=== PATIENT | female | born 1995 | race Caucasian/White ===

== ENCOUNTER 2023-12-09 07:23 | Inpatient (IN) ==
--- OUTSIDE RECORDS SUMMARY | 2023-12-09 07:30 | External Medical Summary | Summary of Care ---
Author Name Unknown Organization [facility] Address [address] [facility] [address] [place] [address] Phone [phone] Care Team Providers Care Natural Resources Specialist Name Role Phone Efra Simmons PA-C Primary Care Provi yasmeen Reason for Visit * Reason Onset Date Comments Advice 12/06/2023 Encounter Details Date Type Department Care Team (Late st Contact Info) Description 12/06/2023 Telephone Gynecology/Obstetrics [facility] [address] [place] [address] Mik Voss MD [address] [place] [address] Advice Allergies Active Allergy Reactions Criticality Noted Date Comments Amoxicillin 01/02/2023 Hives , swollen throat Cefprozil 01/02/2023 hives documented as of this encounter (statuses as of 12/06/2023) Medications Medication Sig Dispensed Refills Start Date End Date Status 27-0.8 MG Oral Tablet Take 1 Tablet by mouth daily at noon. 0 Active Aspirin 81 MG Oral Tablet Delayed ReleaseIndications:H istory of pre-eclampsia in prior , currently Take 1 Tablet by mouth in the morning. 100 Tablet 3 05/24/2023 Active B-6 50 MG Oral Tablet Take 0.5 Tablets by mouth. 0 Active Docusate Sodium 100 MG Oral Capsule (Colace) Take 1 Capsule by mouth in the morning and 1 Capsule before bedtime. 60 Capsule 5 10/04/2023 Active Ondansetron HCl 8 MG Oral TabletIndications:Na usea and vomiting during Take 1 Tablet by mouth every 8 hours as needed for Nausea. 40 Tablet 1 11/15/2023 Active Promethazine HCl 25 MG Oral Tablet (Phenergan)Indicatio ns:Nausea and vomiting during Take 1 Tablet by mouth every 6 hours as needed for Nausea. 30 Tablet 1 11/15/2023 Active documented as of this encounter (statuses as of 12/06/2023) Active Problems Problem Noted Date Diagnosed Date History of pre-eclampsia in prior , currently 05/03/2023 Overview: Plan to start ASA at 12 weeks. Baseline labs at [facility]. Obesity 05/03/2023 PCOS (polycystic ovarian syndrome) 05/03/2023 Normal 05/03/2023 Obesity in , antepartum 05/03/2023 Overview: Class 1, early GTT wnl LGSIL on Pap smear of cervix 12/22/2022 Estimated Date of Delivery Comme nts Yes 12/11/2023 Based on last me nstrual period of 03/06/2023 documented as of this encounter (statuses as of 12/06/2023) Immunizations Name Administration Dates Next Due TDAP (age 10 and older)(Boostrix) 09/17/2023 documented as of this encounter Social History Tobacco Use Types Packs/Day Years Used Date Smoking Tobacco: Never Smokeless Tobacco: Never Alcohol Use Standard Drinks/Week Comments Not Currently 0 (1 standard drink = 0.6 oz pur e alcohol) PHQ-2 Answer Date Recorded PHQ Adult Total Score 0 10/04/2023 Hunger Vital Sign Answer Date Recorded Within the past 12 months, y ou worried that your food would run out before you got the money to buy more. Never true 04/08/20 23 Within the past 12 months, t he food you bought just didn't last and you didn't have money to get more. Never true 04/08/2023 [place] Depression Scale Answer Date Recorded [place] Depression Scale Total 1 11/01/2023 The thought of harming myself has occurred to me . Never 11/01/2023 Estimated Date of Delivery Comme nts Yes 12/11/2023 Based on last me nstrual period of 03/06/2023 Sex and Gender Information Value Date Recorded Sex Assigned at Female 01/02/2023 3:12 PM EDT Gender Identity Female 01/02/2023 3:12 PM EDT Sexual Orientation Straight 01/02/2023 3: 12 PM EDT Job Start Date Occupation Industry Not on file Not on file Not on file documented as of this encounter Miscellaneous Notes * Telephone Encounter - Edmundo Fontanez OSA - 12/06/2023 9:33 AM EDT Pt is calling back in regards to her induction for Saturday. She is requesting a membrane sweep possibly for today to try to go into labor sooner. I let pt know the 24-48 hour callback time. * Telephone Encounter - Ama Corcoran LPN - 12/06/2023 9:19 AM EDT Pt notified. Agreeable to Saturday and [facility] * Telephone Encounter - Olga Han LPN - 12/06/2023 9:03 AM EDT Adriana lópez [facility] called about patients induction. She was scheduled as the 4th case today and they have no open beds. Her induction is being moved to 12/08. She will not be a 4th case Saturday so should not get bumped. Per Dr Lambert, we are to apologize to the patient as this is her second time being bumped and offer to call [facility] for a sooner induction. documented in this encounter Plan of Treatment Upcoming Encounters Date Type Department Care Team (Late st Contact Info) Description 12/06/2023 1:45 PM EDT [facility] [address] [place] [address] Jenny Mosher CRNP [address] [place] [address] 12/09/2023 8:45 AM EDT Office [facility] [address] [place] [address] Cristina Loyd, DNP, CNM [address] [place] [address] Health Maintenance Due Date Last Done Comments Hepatitis B (1 of 3 - 19+ 3-dose series) 02/06/2015 COVID-19 Vaccine (1 - 2022-2 4 season) 2023 Influenza Vaccine (FLU shot) (#1) 2023 Depression Screening 10/04/2024 10/04/2023 Pap Smear 01/02/2026 01/02/2023 DTaP,Tdap,and Td Vaccines (3 - Td or Tdap) 09/17/2033 09/17/2023, 09/22/2019 MENINGOCOCCAL (MENACTRA/MENVEO) Aged Out 10/14/2007 No longer eligible b ased on patient's age to complete this topic GARDASIL-HPV IMMUNIZATION SERIES Completed 06/16/2008, 12/23/2007, 10/14/2007 Pneumococcal Vaccine: Pediatrics (0 to 5 Years) and At-Risk Patients (6 to 64 Years) Aged Out No longer eligible b ased on patient's age to complete this topic documented as of this encounter Medical Devices Not on filedocumented as of this encounter Care Teams Natural Resources Specialist Relationship Specialty Start Date End Date Efra Simmons PA-C [address] [facility] [address] PCP - General Physician Supervisor Concrete Block [employer] 04/04/23 documented as of this encounter
--- OUTSIDE RECORDS SUMMARY | 2023-12-09 07:30 | External Medical Summary | Summary of Care ---
Author Name Unknown Organization [facility] Address [address] [facility] [place] [address] Phone [phone] Care Team Providers Care Apparel Merchandiser Name Role Phone Efra Simmons PA-C Primary Care Provi yasmeen Encounter Details Date Type Department Care Team (Late st Contact Info) Description 12/06/2023 Telephone Gynecology/Obstetrics, [address] [place] [phone] Tiffany Price CRNP [address] [place] [address] Allergies Active Allergy Reactions Criticality Noted Date [...] money to get more. Never true 04/08/2023 [place] Depression Scale Answer Date Recorded [place] Depression Scale Total 1 11/01/2023 The thought [...] encounter Miscellaneous Notes * Telephone Encounter - Elena Pino LPN - 12/06/2023 9:37 AM EDT Pt calling in stating she was to be induced today but it was cancelled and she was told to not cometo her scheduled appointment this morning as she was to be induced. Since this was cancelled she was asking to come in for her original appointment and would like he membranes swept if possible. Pt scheduled in open spot and advised that the provider would be the one to decide if she is able to have he membranes swept. Elena Pino LPN documented in this encounter Plan of Treatment Upcoming Encounters Date Type Department Care Team (Late st Contact Info) Description 12/06/2023 1:45 PM EDT Office Visit Gynecology/Obstetrics [facility] [address] [place] [address] BackerJenny CRNP [address] [place] [address] 12/09/2023 8:45 AM EDT Office Visit Gynecology/Obstetrics [facility] [address] [place] [address] Cristina Loyd, DNP, CNM [address] [facility] [place] [phone] Health Maintenance Due Date Last Done Comments Hepatitis B (1 of 3 - 19+ 3-dose series) 02/06/2015 COVID-19 Vaccine ( - 2022-2 4 season) 2023 Influenza Vaccine [...] filedocumented as of this encounter Care Teams Apparel Merchandiser Relationship Specialty Start Date End Date Efra Simmons PA-C [address] [facility] [address] PCP - General Physician Hedge Fund Principal 04/04/23 documented as of this encounter
--- OUTSIDE RECORDS SUMMARY | 2023-12-09 07:30 | External Medical Summary | Summary of Care ---
Author Name Unknown Organization [facility] Address [address] [facility] [place] [address] Phone [phone] Care Team Providers Care Linen Attendant Name Role Phone Efra Simmons PA-C Primary Care Provi yasmeen Reason for Visit * Reason Comments Return Visit Encounter Details Date Type Department Care Team (Late st Contact Info) Description 12/06/2023 1:45 PM EDT Office Visit Gynecology/Obstetric s [facility] Bedoya [address] [place] [address] BackerJenny CRNP [address] [place] [address] Normal in third trimester*; History of pre-eclampsia in prior , currently ; Obesity in , antepartum Allergies Active Allergy Reactions Criticality Noted Date [...] money to get more. Never true 04/08/2023 [place] Depression Scale Answer Date Recorded [place] Depression Scale Total 1 11/01/2023 The thought of harming myself has occurred to me . Never 11/01/2023 Estimated Date of Delivery Comme nts Yes 12/11/2023 Based on last me nstrual period of 03/06/2023 Sex and Gender Information Value Date Recorded Sex Assigned at Female 01/02/2023 3:12 PM EDT Gender Identity Female 01/02/2023 3:12 PM EDT Sexual Orientation Straight 01/02/2023 3 :12 PM EDT Job Start Date Occupation Industry Not on file Not on file Not on file documented as of this encounter Last Filed Vital Signs Vital Sign Reading Time Taken Comments Blood Pressure 114/70 12/06/2023 1:41 PM EDT Pulse - - Temperature - - Respiratory Rate - - Oxygen Saturation - - Inhaled Oxygen Concentration - - Weight 114.3 kg (252 lb) 12/06/2023 1:41 PM EDT Height - - Body Mass Index 38.32 11/22/2023 8:44 AM EST documented in this encounter Progress Notes * Kirti Castaneda LPN - 12/06/2023 1:41 PM EDT 39w2d Denies vaginal bleeding/rom + movement IOL moved to 12/08 Noticing back pain and pressure * Jenny Mosher CRNP - 12/06/2023 1:39 PM EDT 39w2d Overall ok, just feeling "miserable". No leaking, bleeding, or regular ctx. +back pain. Good movement. Cervix long, fingertip - unable to sweep membranes. Scheduled for induction on Saturday. Call sooner if needed. Ambulance Driver Paramedic Documentation Provider requested induction coordination engineer. Name of induction coordination engineer: JEVON Perez LPN documented in this encounter Plan of Treatment Upcoming Encounters Date Type Department Care Team (Late st Contact Info) Description 12/09/2023 8:45 AM EDT Office Visit Gynecology/Obstetrics [address] [place] [address] Cristina Loyd, BERENICE, CNM [address] [place] [address] [place] [address] Health Maintenance Due Date Last Done Comments [...] Not on filedocumented as of this encounter Visit Diagnoses Diagnosis Normal in third trimester- Primary History of pre-eclampsia in prior , currently with other poor obstetric history Obesity in , antepartum Obesity complicating , childbirth, or the puerperium, antepartum condition or complication documented in this encounter Care Teams Linen Attendant Relationship Specialty Start Date End Date Efra Smimons PA-C [address] [place] [address] PCP - General Physician Trombone Slide Assembler 04/04/23 documented as of this encounter
--- OUTSIDE RECORDS SUMMARY | 2023-12-09 07:31 | External Medical Summary | Summary of Care ---
Author Name Unknown Organization [facility] Address [address] [facility] [place] [address] Phone [phone] Care Team Providers Care Ham Pumper Name Role Phone Efra Simmons PA-C Primary Care Provi yasmeen Reason for Visit * Reason Comments Return Visit Encounter Details Date Type Department Care Team (Late st Contact Info) Description 11/22/2023 8:45 AM EST Office Visit Gynecology/Obstetric s [facility] [address] [place] [address] Tiffany Price CRNP [address] [place] [address] Normal in third trimester*; History of pre-eclampsia in prior , currently ; Obesity in , antepartum; Antepartum tachycardia affecting care of mother; Excessive growth affecting management of , antepartum, single or unspecified fetus Allergies Active Allergy Reactions Criticality Noted Date Comments Amoxicillin 01/02/2023 Hives , swollen throat Cefprozil 01/02/2023 hives documented as of this encounter (statuses as of 11/22/2023) Medications Medication Sig Dispensed Refills Start Date [...] as of this encounter (statuses as of 11/22/2023) Active Problems Problem Noted Date Diagnosed Date [...] as of this encounter (statuses as of 11/22/2023) Immunizations Name Administration Dates Next Due TDAP [...] money to buy more. Never true 04/08/20 Within the past 12 months, t he food you bought just didn't last and you didn't have money to get more. Never true 04/08/2023 [place] Depression Scale Answer Date Recorded [place] Depression Scale Total 1 11/01/2023 The thought [...] Sign Reading Time Taken Comments Blood Pressure 116/68 11/22/2023 8:44 AM EST Pulse - - Temperature - - Respiratory Rate - - Oxygen Saturation - - Inhaled Oxygen Concentration - - Weight 112 kg (247 lb) 11/22/2023 8:44 AM EST Height 172.7 cm (5' 8") 11/22/2023 8:44 AM EST Body Mass Index 37.56 11/22/2023 8:44 AM EST documented in this encounter Progress Notes * Tiffany Price CRNP - 11/22/2023 9:06 AM EST 37w2d Feeling very uncomfortable, baby is LGA. Has IOL scheduled. Good FM. No regular contractions, no bleeding or LOF. tachycardia noted with doppler. NST today. ASSESSMENT assessment with Non-stress Test completed on 11/22/2023 at 37.2weeks gestation for indication of tachycardia heart baseline: 140 bpm Variability: Moderate Decelerations: absent Accelerations: present Contractions: None NST start time: 1000 NST stop time: 1025 NST strip reviewed, interpreted, and approved by OB providerTiffany CRNP . NST strip stored in clinic storage file * Marychuy Bethea LPN - 11/22/2023 8:44 AM EST 37w2d Left sided pain documented in this encounter Plan of Treatment Upcoming Encounters Date Type Department Care Team (Late st Contact Info) Description 11/29/2023 8:45 AM EST Office Visit Gynecology/Obstetrics [facility] Bed[facility] [address] [place] [address] Tiffany Price CRNP [address] [place], [place] [address] 12/06/2023 8:45 AM EDT Office Visit Gynecology/Obstetrics Yan[facility] Maries [address] [place], [place] [address] Tiffany Price CRNP [address] [place] [address] 12/09/2023 8:45 AM EDT Office Visit Gynecology/Obstetrics Yan[facility] Bedoya [address] [place] [address] Cristina Loyd, BERENICE, CN [address] [facility] [address] Health Maintenance Due Date Last Done Comments Hepatitis B (1 of 3 - 19+ 3-dose series) 02/06/2015 COVID-19 Vaccine (2022-2 4 season) 2023 Influenza Vaccine (FLU shot) [...] or the puerperium, antepartum condition or complication Antepartum tachycardia affecting care of mother Abnormality in heart rate/rhythm, antepartum condition or complication Excessive growth affecting management of , antepartum, single or unspecified fetus documented in this encounter Care Teams Ham Pumper Relationship Specialty Start Date End Date Efra Simmons PA-C [address] [facility] [address] PCP - General Physician Plastics Engineering Teacher 04/04/23 documented as of this encounter
--- OUTSIDE RECORDS SUMMARY | 2023-12-09 07:31 | External Medical Summary | Summary of Care ---
Author Name Unknown Organization [facility] Address [address] [facility] [place] [address] Phone [phone] Care Team Providers Care Break Out Worker Name Role Phone Efra Simmons PA-C Primary Care Provi yasmeen Encounter Details Date Type Department Care Team (Late st Contact Info) Description 11/28/2023 Telephone [facility] [address] [place] [address] Tiffany Price CRNP [address] [place] [address] Allergies Active Allergy Reactions Criticality Noted Date Comments Amoxicillin 01/02/2023 Hives , swollen throat Cefprozil 01/02/2023 hives documented as of this encounter (statuses as of 11/29/2023) Medications Medication Sig Dispensed Refills Start Date [...] as of this encounter (statuses as of 11/29/2023) Active Problems Problem Noted Date Diagnosed Date [...] as of this encounter (statuses as of 11/29/2023) Immunizations Name Administration Dates Next Due TDAP [...] money to get more. Never true 04/08/2023 [place] Depression Scale Answer Date Recorded [place] Depression Scale Total 1 11/01/2023 The thought [...] encounter Miscellaneous Notes * Telephone Encounter - Marychuy Bethea LPN - 11/28/2023 3:44 PM EST Pt called in confused to when her Iol was moved. I reached out to [facility] and she said 12/05 IOL is move to. Pt also gave me an updated phone number of [phone]. spoke with pt she verbalized understanding * Telephone Encounter - Eleanor Howard RN - 11/28/2023 3:32 PM EST Reviewed pt's induction with Tiffany for LGA. Hospital is unable to do this now on Saturday due to priority pt. Pt's induction, is being moved to Saturday. Pt will need to call at 1100 am that day to ensure her bed is ready. I attempted to call pt but her number is not accepting called at this time. MyG sent to pt. documented in this encounter Plan of Treatment Upcoming Encounters Date Type Department Care Team (Late st Contact Info) Description 12/06/2023 8:45 AM EDT [facility] [address] [place] [address] Tiffany Price CRNP [address] [place] [address] 12/09/2023 8:45 AM EDT [facility] [address] [place] [address] Cristina Loyd, BERENICE, CNM [address] [place] [address] Health Maintenance Due Date Last Done Comments [...] filedocumented as of this encounter Care Teams Break Out Worker Relationship Specialty Start Date End Date Efra Simmons PA-C [address] [facility] [address] PCP - General Physician Electrical Continuity Inspector 04/04/23 documented as of this encounter
--- OUTSIDE RECORDS SUMMARY | 2023-12-09 07:31 | External Medical Summary | Summary of Care ---
Author Name Unknown Organization [facility] Address [address] [facility] [place] [address] Phone [phone] Care Team Providers Care Digital Experience Manager Name Role Phone Efra Simmons PA-C Primary Care Provi yasmeen Reason for Referral * Evaluate & Treat - Unlimited Visits (Within 10 days (routine)) - Pending Review Specialty Diagnoses / Procedures Referred By Mara salvador Referred To Contact Physical Therapy / Physical Medicine And Rehab Diagnoses Pelvic pain affecting in third trimester, antepartum Jenny Mosher CRNP [address] [employer] [place] [address] Referral ID Status Reason Start Date Expiration Date Visits Requested Visits Authorized [id number] Pending Review Specialty Services Required 11/15/[phone] Question Answer Referral Priority Within 10 days (routine) Where should this appointment be scheduled? [facility] Reason for Visit * Reason Comments Return Visit Encounter Details Date Type Department Care Team ([facility] st Contact Info) Description 11/15/2023 8:45 AM EST Office Visit Gynecology/Obstetric s [facility] [address] [place] [address] Jenny Mosher CRNP [address] [employer] [place] [address] Normal in third trimester*; History of pre-eclampsia in prior , currently ; Obesity in , antepartum; Nausea and vomiting during ; Pelvic pain affecting in third trimester, antepartum Allergies Active Allergy Reactions Criticality Noted Date Comments Amoxicillin 01/02/2023 Hives , swollen throat Cefprozil 01/02/2023 hives documented as of this encounter (statuses as of 11/15/2023) Medications Medication Sig Dispensed Refills Start Date End Date Status 27-0.8 MG Oral Tablet Take 1 Tablet by mouth daily at noon. 0 Active Aspirin 81 MG Oral Tablet Delayed ReleaseIndication s:History of pre-eclampsia in prior , currently Take 1 Tablet by mouth in the morning. 100 Tablet 3 05/24/2023 Active B-6 50 MG Oral Tablet Take 0.5 Tablets by mouth. 0 Active Docusate Sodium 100 MG Oral Capsule (Colace) Take 1 Capsule by mouth in the morning and 1 Capsule before bedtime. 60 Capsule 5 10/04/2023 Active Ondansetron HCl 8 MG Oral TabletIndications :Nausea and vomiting during Take 1 Tablet by mouth every 8 hours as needed for Nausea. 40 Tablet 1 11/15/2023 Active Promethazine HCl 25 MG Oral Tablet (Phenergan)Indica tions:Nausea and vomiting during Take 1 Tablet by mouth every 6 hours as needed for Nausea. 30 Tablet 1 11/15/2023 Active Ondansetron HCl 8 MG Oral Tablet Take 1 Tablet by mouth every 8 hours as needed for Nausea. 40 Tablet 1 09/17/2023 11/15/2023 Discontinued (Refill) documented as of this encounter (statuses as of 11/15/2023) Active Problems Problem Noted Date Diagnosed Date [...] as of this encounter (statuses as of 11/15/2023) Immunizations Name Administration Dates Next Due TDAP [...] money to get more. Never true 04/08/2023 [place] Depression Scale Answer Date Recorded [place] Depression Scale Total 1 11/01/2023 The thought [...] Sign Reading Time Taken Comments Blood Pressure 110/68 11/15/2023 8:32 AM EST Pulse - - Temperature - - Respiratory Rate - - Oxygen Saturation - - Inhaled Oxygen Concentration - - Weight 113.4 kg (250 lb) 11/15/2023 8:32 AM EST Height - - Body Mass Index 38.01 10/18/2023 8:41 AM EST documented in this encounter Patient Instructions * Patient Instructions* Jenny Mosher CRNP - 11/15/2023 8:50 AM EST Local pelvic floor physical therapists - Jakob Cameron: , . Website [email or web address] - [place] [facility]: [email or web address]. [phone] - Energy: [phone] - Christy: [email or web address]. documented in this encounter Progress Notes * Jenny Mosher CRNP - 11/15/2023 8:41 AM EST 36w2d Growth scan today: 3411gm (95%); AC 99th %ile 23.1 CM FRANSICO, vertex GBS today. Discussed 39 wk induction due to LGA (though not a medical indication); she is agreeable. Baby is moving well. No ctx but having lower pelvic pain with walking - tried exercise ball, stretching, Tylenol, fluids, belly band. Will send referral for PT, given list of local providers. Return in 1 week. Fastener Sewing Machine Operator Documentation Provider requested senior project architect. Name of senior project architect: JEVON Londono LPN documented in this encounter Nursing Notes * Ama Corcoran LPN - 11/15/2023 8:29 AM EST Pt is currently 36w2d with an Estimated Date of Delivery: 12/11/23 - Growth today. 37w4d 3411gm 132 FHT 23.1 CM FRANSICO documented in this encounter Plan of Treatment Upcoming Encounters Date Type Department Care Team (Late st Contact Info) Description 11/22/2023 8:45 AM EST Office Visit Gynecology/Obstetrics [facility] [address] [place] [address] Tiffany Price CRNP 132 [place] [address] 11/29/2023 8:45 AM EST Office Visit Gynecology/Obstetrics [facility] [address] [place] [address] Tiffany Price CRNP [address] [place] [address] 12/06/2023 8:45 AM EDT Office Visit Gynecology/Obstetrics [facility] [address] [facility] [place] [address] Tiffany Price CRNP 132 [facility] [place] [address] 12/09/2023 8:45 AM EDT Office Visit Gynecology/Obstetrics [facility] 132 [facility] [place] [address] Cristina Loyd, DNP, CNM [address] [facility] [place] [address] Pending Results Name Type Priority Associated Diagnoses Date /Time GROUP B STREP CULTURE/PCR Lab Routine Normal in third trimester 11/15/2023 8:59 AM EST Scheduled Orders Name Type Priority Associated Diagnoses Orde r Schedule GROUP B STREP CULTURE/PCR Lab Routine Normal in third trimester Expected: 11/15/2023, Expires: 11/15/2024 Scheduled Referrals Name Type Priority Associated Diagnoses Orde r Schedule PHYSICAL THERAPY REFERRAL OP Referral Within 10 days (routine) Pelvic pain affecting in third trimester, antepartum Ordered: 11/15/2023 Health Maintenance Due Date Last Done Comments [...] or the puerperium, antepartum condition or complication Nausea and vomiting during Pelvic pain affecting in third trimester, antepartum documented in this encounter Care Teams Digital Experience Manager Relationship Specialty Start Date End Date E[facility]-C [facility] [facility] [address] PCP - General Physician Manager Banking 04/04/23 documented as of this encounter
--- OUTSIDE RECORDS SUMMARY | 2023-12-09 07:31 | External Medical Summary | Summary of Care ---
Author Name Unknown Organization [facility] Address [address] [facility] [place] [address] Phone [phone] Care Team Providers Care Able Seaman Name Role Phone Efra Simmons PA-C Primary Care Provi yasmeen Encounter Details Date Type Department Care Team (Late st Contact Info) Description 11/28/2023 Telephone [facility] [address] [place] [address] Diane Chavez PA-C [address] [place] [address] Allergies Active Allergy Reactions Criticality Noted Date Comments Amoxicillin 01/02/2023 Hives , swollen throat Cefprozil 01/02/2023 hives documented as of this encounter (statuses as of 11/28/2023) Medications Medication Sig Dispensed Refills Start Date [...] as of this encounter (statuses as of 11/28/2023) Active Problems Problem Noted Date Diagnosed Date [...] as of this encounter (statuses as of 11/28/2023) Immunizations Name Administration Dates Next Due TDAP [...] money to get more. Never true 04/08/2023 [place] Depression Scale Answer Date Recorded [place] Depression Scale Total 1 11/01/2023 The thought [...] encounter Miscellaneous Notes * Telephone Encounter - Diane Chavez PA-C - 11/28/2023 1:53 PM EST [facility]'s patient. Vaginosis + for yeast. OTC monistat is safest treatment in . Recommend for treatment if she has not tried at thistime. Diane Chavez PA-C documented in this encounter Plan of Treatment Upcoming Encounters Date Type Department Care Team (Late st Contact Info) Description 12/06/2023 8:45 AM EDT Office Visit Gynecology/Obstetrics [facility] [address] [place] [address] Tiffany Price CRNP [address] [place] [address] 12/09/2023 8:45 AM EDT Office Visit Gynecology/Obstetrics [facility] [address] [place] [address] Cristina Loyd, DNP, CNM [address] [facility] [place] [address] Health Maintenance Due Date Last Done Comments [...] filedocumented as of this encounter Care Teams Able Seaman Relationship Specialty Start Date End Date Efra Simmons PA-C [address] [facility] [address] PCP - General Physician Infusion Pharmacist 04/04/23 documented as of this encounter
--- OUTSIDE RECORDS SUMMARY | 2023-12-09 07:31 | External Medical Summary | Summary of Care ---
Author Name Unknown Organization [facility] Address [address] [facility] [place] [address] Phone [phone] Care Team Providers Care Rn Vascular Name Role Phone Efra Simmons PA-C Primary Care Provi yasmeen Encounter Details Date Type Department Care Team (Late st Contact Info) Description 12/06/2023 Telephone Gynecology/Obstetrics [facility] [address] [place] [address] Mik Voss MD [address] [place] [address] Allergies Active Allergy Reactions Criticality Noted Date [...] money to get more. Never true 04/08/2023 [place] Depression Scale Answer Date Recorded [place] Depression Scale Total 1 11/01/2023 The thought [...] encounter Miscellaneous Notes * Telephone Encounter - Ama Corcoran LPN - 12/06/2023 9:19 AM EDT Pt notified. Agreeable to [facility] and [facility] * Telephone Encounter - Olga Han LPN - 12/06/2023 9:03 AM EDT Adriana as L+D called about patients induction. She was scheduled as the 4th case today and they have no open beds. Her induction is being moved to 12/08. She will not be a 4th case Saturday so should not get bumped. Per Dr Lambert, we are to apologize to the patient as this is her second time being bumped and offer to call [facility] for a sooner induction. documented in this encounter Plan of Treatment Upcoming Encounters Date Type Department Care Team (Late st Contact Info) Description 12/09/2023 8:45 AM EDT Office Visit Gynecology/Obstetrics [facility] [address] [facility] [place] [address] Cristina Loyd, DNP, CNM [address] [place] [address] [place] [address] Health Maintenance Due Date [...] filedocumented as of this encounter Care Teams Rn Vascular Relationship Specialty Start Date End Date Efra Simmons PA-C [address] [facility] [address] PCP - General Physician White Shoe Examiner 04/04/23 documented as of this encounter
--- OUTSIDE RECORDS SUMMARY | 2023-12-09 07:31 | External Medical Summary | Summary of Care ---
Author Name Unknown Organization [facility] Address [address] [facility] [place] [address] Phone [phone] Care Team Providers Care Wall Crane Operator Name Role Phone Efra Simmons PA-C Primary Care Provi yasmeen Encounter Details Date Type Department Care Team (Late st Contact Info) Description 11/28/2023 Telephone [facility] [address] [place] [address] Tiffany Price CRNP [address] [place] [address] Allergies Active Allergy Reactions Criticality Noted Date [...] money to get more. Never true 04/08/2023 [place] Depression Scale Answer Date Recorded [place] Depression Scale Total 1 11/01/2023 The thought [...] Iol was moved. I reached out to [facility] and she said 12/05 IOL is move to. Pt also gave me an updated phone number of [phone]. spoke with pt she verbalized understanding * [...] 12/06/2023 8:45 AM EDT [facility] [address] [place] [address] Tiffany Price CRNP [address] [place] [address] 12/09/2023 8:45 AM EDT Office [facility] [address] [place] [address] Cristina Loyd, BERENICE, CNM [address] [place] [address] Health Maintenance Due Date Last Done Comments [...] filedocumented as of this encounter Care Teams Wall Crane Operator Relationship Specialty Start Date End Date Efra Simmons PA-C [address] [facility] [address] PCP - General Physician Dry Goods Inspector 04/04/23 documented as of this encounter
--- OUTSIDE RECORDS SUMMARY | 2023-12-09 07:31 | External Medical Summary ---
Author Name Unknown Address Unknown Organization [facility] [place] [address] Laboratory Report Ordering Provider Test Date Status PRICILA DRISCOLL 11/27/2023 13:48:00 Final Observation Date Value Abnormality Reference (Units ) Status Albumin 11/27/2023 13:48:00 3.5 Below low normal 3.8-5.0 (g/dL) Final AST (Aspartate aminotransferase) 11/27/2023 13:48:00 14 10-35 (U/L) Final Alk Phos 11/27/2023 13:48:00 220 Above high normal 35-130 (U/L) Final ALT (Alanine aminotransferase) 11/27/2023 13:48:00 9 Below low normal 10-35 (U/L) Final Bilirubin, Total 11/27/2023 13:48:00 0.4 <=1.2 (mg/dL) Final Bilirubin, Direct 11/27/2023 13:48:00 <0.2 0.0-0.3 (mg/dL) Final Protein 11/27/2023 13:48:00 6.0 6.0-8.3 (g/dL) Final Performing Location [facility] [place] [address]
--- OUTSIDE RECORDS SUMMARY | 2023-12-09 07:31 | External Medical Summary ---
Author Name Unknown Address Unknown Organization K[facility] [address] [facility] [address] Laboratory Report Ordering Provider Test Date Status PRICILA DRISCOLL 11/27/2023 13:37:05 Final Observation Date Value Abnormality Reference (Units ) Status Alta glabrata DNA [Presence] in Vaginal fluid by JENNIFER with probe detection 11/27/2023 13:37:05 Negative Negative Final Alta glabrata not detecte d by PCR. Alta albicans DNA [Presen ce] in Vaginal fluid by JENNIFER with probe detection 11/27/2023 13:37:05 Positive Abnormal Negative Final Alta albicans detected by PCR.

Organism may be associated with colonization. Clinical correlation needed. Trichomonas vaginalis DNA [P resence] in Vaginal fluid by JENNIFER with probe detection 11/27/2023 13:37:05 Negative Negative Final Trichomonas vaginalis not de tected by PCR. Gardnerella vaginalis DNA [P resence] in Vaginal fluid by Probe with signal amplification 11/27/2023 13:37:05 Negative Negative Final Gardnerella vaginalis not de tected by PCR.

This test was developed and its performance characteristics determined by [facility]. It has not been cleared or approved by the U.S. Food and Drug Administration (FDA). FDA does not require this test to go through premarket FDA review. This test is used for clinical purposes. It should not be regarded as investigational or for research. This laboratory is certified under the Clinical Laboratory Improvement Amendments (CLIA) as qualified to perform high complexity clinical laboratory testing.

The validation of self-collected vaginal swabs for this assay was developed and performance characteristics determined by [facility]. The validation of alternate specimen types has not been cleared or approved by the U.S. Food and Drug Administration (FDA). It has been determined that such clearance or approval is not necessary.

null Performing Location [facility] [address] [facility] [address] [address]
--- OUTSIDE RECORDS SUMMARY | 2023-12-09 07:31 | External Medical Summary | Summary of Care ---
Author Name Unknown Organization [facility] Address [address] [facility] [place] [address] Phone [phone] Care Team Providers Care Car Knocker Name Role Phone Efra Simmons PA-C Primary Care Provi yasmeen Reason for Visit * Reason Onset Date Comments Encounter Created in Error 11/15/2023 Encounter Details Date Type Department Care Team (Late st Contact Info) Description 11/15/2023 Telephone Gynecology/Obstetrics [facility] [address] [place] [address] Jenny Mosher CRNP [address] [place] [address] Encounter Created in Error Allergies Active Allergy Reactions Criticality Noted Date [...] money to get more. Never true 04/08/20[address] [place] Depression Scale Answer Date Recorded [place] Depression Scale Total 1 11/01/2023 The thought [...] on file documented as of this encounter Plan of Treatment Upcoming Encounters Date Type Department Care Team (Late st Contact Info) Description 11/22/2023 8:45 AM EST Office Visit Gynecology/Obstetrics [facility] [address] [place] [address] Tiffany Price CRNP [address] [place] [address] 11/29/2023 8:45 AM EST Office Visit Gynecology/Obstetrics [facility] [address] [place] [address] Tiffany Price CRNP [address] [place] [address] 12/06/2023 8:45 AM EDT Office Visit Gynecology/Obstetrics [facility] [address] [place] [address] Tfifany Price CRNP [address] [place] [address] 12/09/2023 8:45 AM EDT Office [facility] [address] [place] [address] Cristina Loyd, DNP, CNM [address] [place] [address] Health Maintenance Due Date Last Done Comments [...] filedocumented as of this encounter Care Teams Car Knocker Relationship Specialty Start Date End Date Efra Simmons PA-C [address] [facility] [address] PCP - General Physician Head Waitress 04/04/23 documented as of this encounter
--- OUTSIDE RECORDS SUMMARY | 2023-12-09 07:31 | External Medical Summary | Summary of Care ---
Author Name Unknown Organization [facility] Address [address] [facility] [place] [address] Phone [phone] Care Team Providers Care Manager Market Development Name Role Phone Efra Simmons PA-C Primary Care Provi yasmeen Reason for Visit * Reason Onset Date Comments Advice 12/06/2023 Encounter Details Date Type Department Care Team (Late st Contact Info) Description 12/06/2023 Telephone Gynecology/Obstetrics [facility] [address] [place] [address] Mik Voss MD [address] [place] [address] Advice Allergies Active Allergy Reactions Criticality Noted [...] money to get more. Never true 04/08/2023 [place] Depression Scale Answer Date Recorded [place] Depression Scale Total 1 11/01/2023 The thought [...] EDT Pt notified. Agreeable to Saturday and [facility] * Telephone Encounter - Olga Han LPN - 12/06/2023 9:03 AM EDT Adriana lópez L+D called about patients induction. She was scheduled as the 4th case today and they have no open beds. Her induction is being moved to 12/08. She will not be a 4th case Saturday so should not get bumped. Per Dr Lambert, we are to apologize to the patient as this is her second time being bumped and [facility] a sooner [facility]. documented in this encounter Plan of Treatment Upcoming Encounters Date Type Department Care Team (Late st Contact Info) Description 12/09/2023 8:45 AM EDT Office Visit Gynecology/Obstetrics [facility] [address] [facility] [place] [address] Cristina Loyd, DNP, CNM [address] [place] [address] Health Maintenance Due Date Last Done [...] filedocumented as of this encounter Care Teams Manager Market Development Relationship Specialty Start Date End Date Efra Simmons PA-C [address] [facility] [address] PCP - General Physician Director Data Management 04/04/23 documented as of this encounter
--- OUTSIDE RECORDS SUMMARY | 2023-12-09 07:31 | External Medical Summary | Summary of Care ---
Author Name Unknown Organization [facility] Address [address] [facility] [place] [address] Phone [phone] Care Team Providers Care Assistant Project Engineer Name Role Phone Efra Simmons PA-C Primary Care Provi yasmeen Reason for Visit * Reason Onset Date Comments Advice 12/06/2023 Encounter Details Date Type Department Care Team (Late st Contact Info) Description 12/06/2023 Telephone Gynecology/Obstetrics [facility] [address] [place] [address] Mik Voss MD [address] [place] [address] Advice Allergies Active Allergy Reactions Criticality Noted [...] money to get more. Never true 04/08/2023 [place] Depression Scale Answer Date Recorded [place] Depression Scale Total 1 11/01/2023 The thought [...] 9:19 AM EDT Pt notified. Agreeable to [facility] and [facility] * Telephone Encounter - Olga Han LPN [...] time being bumped and offer to call [facility] for a sooner induction. documented in this encounter Plan of Treatment Upcoming Encounters Date Type Department Care Team (Late st Contact Info) Description 12/09/2023 8:45 AM EDT Office Visit Gynecology/Obstetrics [facility] [address] [facility] [place] [address] Cristina Loyd, BERENICE, CNM [address] [place] [address] [place] [address] Health Maintenance Due Date Last Done Comments Hepatitis B (1 of - 19+ 3-dose series) 02/06/2015 COVID-19 Vaccine [...] filedocumented as of this encounter Care Teams Assistant Project Engineer Relationship Specialty Start Date End Date Efra Simmons PA-C [address] [facility] [address] PCP - General Physician Cardiologist 04/04/23 documented as of this encounter
--- OUTSIDE RECORDS SUMMARY | 2023-12-09 07:31 | External Medical Summary | Summary of Care ---
Author Name Unknown Organization [facility] Address [address] [facility] [place] [address] Phone [phone] Care Team Providers Care Papier Mache Molder Name Role Phone Efra Simmons PA-C Primary Care Provi yasmeen Reason for Visit * Reason Comments Outpatient Testing Encounter Details Date Type Department Care Team (Late st Contact Info) Description 11/27/2023 1:50 PM EST Laboratory Laboratory, [facility] [address] [facility] [place] [address] [facility] [address] [place] [address] History of pre-eclampsia in prior , currently ; Epigastric pain Allergies Active Allergy Reactions Criticality Noted Date Comments Amoxicillin 01/02/2023 Hives , swollen throat Cefprozil 01/02/2023 hives documented as of this encounter (statuses as of 11/27/2023) Medications Medication Sig Dispensed Refills Start Date [...] as of this encounter (statuses as of 11/27/2023) Active Problems Problem Noted Date Diagnosed Date [...] as of this encounter (statuses as of 11/27/2023) Immunizations Name Administration Dates Next Due TDAP [...] money to get more. Never true 04/08/2023 [place] Depression Scale Answer Date Recorded [place] Depression Scale Total 1 11/01/2023 The thought [...] 12/06/2023 8:45 AM EDT Office Visit Gynecology/Obstetrics [facility] [address] [facility] [place] [address] Tiffany Price CRNP [address] [place] [address] 12/09/2023 8:45 AM EDT Office Visit Gynecology/Obstetrics [facility] [address] [facility] [place] [address] Cristina Loyd, BERENICE, CNM [address] [facility] [place] [address] Pending Results Name Type Priority Associated Diagnoses Date /Time HEPATIC FUNCTION PANEL Lab Routine History of pre-eclampsia in prior , currently Epigastric pain 11/27/2023 1:48 PM EST CBC Lab Routine History of pre-eclampsia in prior , currently Epigastric pain 11/27/2023 1:48 PM EST CREATININE Lab Routine History of pre-eclampsia in prior , currently Epigastric pain 11/27/2023 1:48 PM EST Health Maintenance Due Date Last Done Comments [...] as of this encounter Visit Diagnoses Diagnosis History of pre-eclampsia in prior , currently with other poor obstetric history Epigastric pain Abdominal pain, epigastric documented in this encounter Care Teams Papier Mache Molder Relationship Specialty Start Date End Date Efra Simmons PA-C [address] [facility] [place] [address] PCP - General Physician Domain Architect 04/04/23 documented as of this encounter
--- OUTSIDE RECORDS SUMMARY | 2023-12-09 07:31 | External Medical Summary | Summary of Care ---
Author Name Unknown Organization [facility] Address [address] [facility] [place] [address] Phone [phone] Care Team Providers Care Riveter Helper Name Role Phone Efra Simmons PA-C Primary Care Provi yasmeen Encounter Details Date Type Department Care Team (Late st Contact Info) Description 11/28/2023 Telephone Gynecology/Obst[facility]s [facility] [address] [place] [address] Tiffany Price CRNP [address] [place] [address] Allergies Active Allergy Reactions Criticality Noted Date [...] money to get more. Never true 04/08/2023 [place] Depression Scale Answer Date Recorded [place] Depression Scale Total 1 11/01/2023 The thought [...] Iol was moved. I reached out to [facility] and she said 12/05 IOL is move to. Pt also gave me an updated phone number of [phone]. spoke with pt she verbalized understanding * [...] 12/06/2023 8:45 AM EDT Office [facility] [address] [place] [address] Tiffany Price CRNP [address] [place] [address] 12/09/2023 8:45 AM EDT Office [facility] [address] [place] [address] Cristina Loyd, BERENICE, CNM [address] [place] [address] Health Maintenance Due Date Last Done Comments [...] filedocumented as of this encounter Care Teams Riveter Helper Relationship Specialty Start Date End Date E[facility] Simmons PA-C [facility] [facility] [address] PCP - General Physician Forge Utility Worker 04/04/23 documented as of this encounter
--- OUTSIDE RECORDS SUMMARY | 2023-12-09 07:31 | External Medical Summary ---
Author Name Unknown Address Unknown Organization [id number]:[facility] [address] [place] [address] Laboratory Report Ordering Provider Test Date Status PRICILA DRISCOLL 11/27/2023 13:48:00 Final Observation Date Value Abnormality Reference (Units ) Status WBC, Total 11/27/2023 13:48:00 13.29 Above high normal 4 .00-10.80 (K/uL) Final RBC 11/27/2023 13:48:00 4.15 3.85-5.15 (M/uL) Final Hemoglobin 11/27/2023 13:48:00 11.5 Below low normal 12 .0-15.3 (g/dL) Final HCT 11/27/2023 13:48:00 35.2 Below low normal 36. 0-45.2 (%) Final MCV 11/27/2023 13:48:00 84.8 81.5-97.5 (fL) Final MCH 11/27/2023 13:48:00 27.7 27.0-34.0 (pg) Final MCHC 11/27/2023 13:48:00 32.7 32.0-36.0 (g/dL) Final RDW 11/27/2023 13:48:00 15.0 11.5-15.5 (%) Final Platelets 11/27/2023 13:48:00 236 140-400 (K /uL) Final MPV 11/27/2023 13:48:00 10.6 6.6-11.1 ( fL) Final Performing Location [facility] [address] - [address] [place] [address]
--- OUTSIDE RECORDS SUMMARY | 2023-12-09 07:32 | External Medical Summary ---
Author Name Unknown Address Unknown Organization [id number]:[facility] [place] [facility] [address] [facility] [address] [facility] [address] Laboratory Report Ordering Provider Test Date Status PRICILA DRISCOLL 11/15/2023 08:59:57 Final Observation Date Value Abnormality Reference (Units ) Status Streptococcus agalactiae DNA [Presence] in Specimen by JENNIFER with probe detection 11/15/2023 08:59:57 Negative Negative Final No Group B Streptococcus det ected by culture-enhanced PCR (amplified probe).
The collection of vaginal/rectal swab specimen combinations (FDA approved specimen type) is optimal for the detection of Group B Streptococcus. Single source collection (vaginal only or rectal only) or alternate specimen sources may lead to false negative results. Performing Location [facility] [place] [address] [facility] [address] [facility] [address]
--- OUTSIDE RECORDS SUMMARY | 2023-12-09 07:32 | External Medical Summary | Summary of Care ---
Author Name Unknown Organization [facility] Address [address] [facility] [place] [address] Phone [phone] Care Team Providers Care Hogshead Builder Name Role Phone Efra Simmons PA-C Primary Care Provi yasmeen Reason for Visit * Reason Comments Return Visit Encounter Details Date Type Department Care Team (Late st Contact Info) Description 08/20/2023 1:30 PM EST Office Visit Gynecology/Obstetric s [facility] [address] [place] [address] Tiffany Price CRNP [address] [place] [address] Normal in second trimester*; History of pre-eclampsia in prior , currently ; Obesity in , antepartum Allergies Active Allergy Reactions Criticality Noted Date Comments Amoxicillin 01/02/2023 Hives , swollen throat Cefprozil 01/02/2023 hives documented as of this encounter (statuses as of 08/20/2023) Medications Medication Sig Dispensed Refills Start Date End Date Status 27-0.8 MG Oral Tablet Take 1 Tablet by mouth daily at noon. 0 Active Aspirin 81 MG Oral Tablet Delayed ReleaseIndications:H istory of pre-eclampsia in prior , currently Take 1 Tablet by mouth in the morning. 100 Tablet 3 05/24/2023 Active B-6 50 MG Oral Tablet Take 0.5 Tablets by mouth. 0 Active documented as of this encounter (statuses as of 08/20/2023) Active Problems Problem Noted Date Diagnosed Date [...] as of this encounter (statuses as of 08/20/2023) Social History Tobacco Use Types Packs/Day Years Used Date Smoking Tobacco: Never Smokeless Tobacco: Never Alcohol Use Standard Drinks/Week Comments Not Currently 0 (1 standard drink = 0.6 oz pur e alcohol) Hunger Vital Sign Answer Date Recorded Within the past 12 months, y ou worried that your food would run out before you got the money to buy more. Never true 04/08/20 23 Within the past 12 months, t he food you bought just didn't last and you didn't have money to get more. Never true 04/08/2023 [place] Depression Scale Answer Date Recorded [place] Depression Scale Total 0 01/02/2023 The thought of harming myself has occurred to me . Never 01/02/2023 Estimated Date of Delivery Comme nts Yes [...] Sign Reading Time Taken Comments Blood Pressure 114/68 08/20/2023 1:24 PM EST Pulse - - Temperature - - Respiratory Rate - - Oxygen Saturation - - Inhaled Oxygen Concentration - - Weight 108 kg (238 lb) 08/20/2023 1:24 PM EST Height 172.7 cm (5' 8") 08/20/2023 1:24 PM EST Body Mass Index 36.19 08/20/2023 1:24 PM EST documented in this encounter Progress Notes * Tiffany Price CRNP - 08/20/2023 1:37 PM EST 23w6d No concerns. Baby is active. No contractions, bleeding, or LOF. Feels safe at home. Glucola with next visit. JEVON Ross * Marychuy Bethea LPN - 08/20/2023 1:24 PM EST 23w6d Denies any issues documented in this encounter Plan of Treatment Upcoming Encounters Date Type Department Care Team (Late st Contact Info) Description 09/17/2023 9:00 AM EST Laboratory Laboratory, [facility] [place] [address] [facility] [place] [address] 09/17/2023 9:15 AM EST Office Visit [facility]necology[facility]st[facility] [place] [address] Tiffany Price CRNP [address] [facility] [place] [address] Scheduled Orders Name Type Priority Associated Diagnoses Orde r Schedule 50-G GESTATIONAL GLUCOSE, 1 HOUR Lab Routine Normal in second trimester Expected: 09/03/2023 (Approximate), Expires: 08/20/2024 SYPHILIS ANTIBODY SCREEN WITH REFLEX TO RPR Lab Routine Normal in second trimester Expected: 09/03/2023 (Approximate), Expires: 08/20/2024 CBC WITH WBC DIFFERENTIAL AND ANEMIA REFLEX WORKUP Lab Routine Normal in second trimester Expected: 09/03/2023 (Approximate), Expires: 08/20/2024 Health Maintenance Due Date Last Done Comments Hepatitis B (1 of 3 - 3-dose series) 1996 COVID-19 Vaccine (#1) 1996 Depression Screening 2008 Influenza Vaccine (FLU shot) (#1) 2023 Pap Smear 01/02/2026 01/02/2023 DTaP,Tdap,and Td Vaccines (2 - Td or Tdap) 09/22/2029 09/22/2019 MENINGOCOCCAL (MENACTRA/MENVEO) Aged Out 10/14/2007 No [...] this encounter Visit Diagnoses Diagnosis Normal in second trimester- Primary History of pre-eclampsia in prior , currently with other poor obstetric history Obesity in , antepartum Obesity complicating , childbirth, or the puerperium, antepartum condition or complication documented in this encounter Care Teams Hogshead Builder Relationship Specialty Start Date End Date E[facility] Simmons PA-C [facility] [facility] [address] PCP - General Physician Workforce Management Coordinator 04/04/23 documented as of this encounter
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
--- OUTSIDE RECORDS SUMMARY | 2023-12-09 07:32 | External Medical Summary ---
Author Name Unknown Address Unknown Organization K01:[facility] [place] [facility] [place] [address] Laboratory Report Ordering Provider Test Date Status RUT WOODS 09/17/2023 09:53:42 Final Observation Date Value Abnormality Reference (Units ) Status Glucose [Moles/volume] in Serum or Plasma --1 hour post 50 g glucose PO 09/17/2023 09:53:42 95 70-129 (mg/dL) Final Performing Location [facility] [place] [address] [place] [address]
--- OUTSIDE RECORDS SUMMARY | 2023-12-09 07:32 | External Medical Summary | Summary of Care ---
Author Name Unknown Organization [facility] Address [address] [facility] [place] [address] Phone [phone] Care Team Providers Care Transportation Inspector Name Role Phone Efra Simmons PA-C Primary Care Provi yasmeen Reason for Visit * Reason Comments Return Visit Encounter Details Date Type Department Care Team (Late st Contact Info) Description 10/04/2023 8:45 AM EST Office Visit Gynecology/Obstetric s [facility] [address] [place] [address] Tiffany Price CRNP [address] [place] [address] Normal in third trimester*; History of pre-eclampsia in prior , currently ; Obesity in , antepartum Allergies Active Allergy Reactions Criticality Noted Date Comments Amoxicillin 01/02/2023 Hives , swollen throat Cefprozil 01/02/2023 hives documented as of this encounter (statuses as of 10/04/2023) Medications Medication Sig Dispensed Refills Start Date End Date Status 27-0.8 MG Oral Tablet Take 1 Tablet by mouth daily at noon. 0 Active Aspirin 81 MG Oral Tablet Delayed ReleaseIndications:H istory of pre-eclampsia in prior , currently Take 1 Tablet by mouth in the morning. 100 Tablet 3 05/24/2023 Active B-6 50 MG Oral Tablet Take 0.5 Tablets by mouth. 0 Active Ondansetron HCl 8 MG Oral Tablet Take 1 Tablet by mouth every 8 hours as needed for Nausea. 40 Tablet 1 09/17/2023 Active Docusate Sodium 100 MG Oral Capsule (Colace) Take 1 Capsule by mouth in the morning and 1 Capsule before bedtime. 60 Capsule 5 10/04/2023 Active documented as of this encounter (statuses as of 10/04/2023) Active Problems Problem Noted Date Diagnosed Date [...] as of this encounter (statuses as of 10/04/2023) Immunizations Name Administration Dates Next Due TDAP [...] money to get more. Never true 04/08/2023 [place] Depression Scale Answer Date Recorded [place] Depression Scale Total 2 09/17/2023 The thought of harming myself has occurred to me . Never 09/17/2023 Estimated Date of Delivery Comme nts Yes [...] Sign Reading Time Taken Comments Blood Pressure 106/64 10/04/2023 8:51 AM EST Pulse - - Temperature - - Respiratory Rate - - Oxygen Saturation - - Inhaled Oxygen Concentration - - Weight 111.1 kg (245 lb) 10/04/2023 8:51 AM EST Height 172.7 cm (5' 8") 10/04/2023 8:51 AM EST Body Mass Index 37.25 10/04/2023 8:51 AM EST documented in this encounter Progress Notes * Tiffany Price CRNP - 10/04/2023 9:11 AM EST 30w2d Still with n/v, taking zofran. Needs colace, asking for rx. Having BH contractions, feels more than adequately hydrated. Baby is active. No bleeding or LOF. Continues to be size>dates, will recheck u/s with next visit. JEVON Ross * Marychuy Bethea LPN - 10/04/2023 8:52 AM EST 30w2d Needs colace documented in this encounter Plan of Treatment Upcoming Encounters Date Type Department Care Team (Late st Contact Info) Description 10/18/2023 8:15 AM EST Imaging Radiology [facility] [address] [place] [address] 10/18/2023 8:45 AM EST Office Visit Gynecology/Obstetrics [facility] [address] [place] [address] Baldomero Avila MD [address] [place] [address] Scheduled Orders Name Type Priority Associated Diagnoses Orde r Schedule US PREG FOLLOW-UP EACH FETUS Medical Imaging Routine Obesity in , antepartum Expected: 10/18/2023 (Approximate), Expires: 11/04/2024 Health Maintenance Due Date Last Done Comments Hepatitis B (1 of 3 - 3-dose series) 1996 COVID-19 Vaccine (#1) 1996 Depression Screening 2008 10/04/2023 Influenza Vaccine (FLU shot) (#1) 2023 Pap [...] complication documented in this encounter Care Teams Transportation Inspector Relationship Specialty Start Date End Date Efra Simmons PA-C [address] [place] [address] PCP - General Physician Retail Selling Floor Leader 04/04/23 documented as of this encounter
--- OUTSIDE RECORDS SUMMARY | 2023-12-09 07:32 | External Medical Summary ---
Author Name Unknown Address Unknown Organization K01:[facility] [place] [facility] [address] [facility] [address] Laboratory Report Ordering Provider Test Date Status RUT WOODS 09/17/2023 09:53:42 Final Observation Date Value Abnormality Reference (Units ) Status SYNC LEUKOCYTES IN BLOOD BY AUTOMATED COUNT 09/17/2023 09:53:42 11.84 Above high normal 4.00-10.80 (K/uL) Final Segs 09/17/2023 09:53:42 75.0 40.0-75.0 (%) Final Lymphs % 09/17/2023 09:53:42 13.4 Below low normal 18.0-42.0 (%) Final Monos 09/17/2023 09:53:42 6.4 1.0-11.0 (%) Final Eosinophils 09/17/2023 09:53:42 0.7 0.0-6.0 (%) Final Basos 09/17/2023 09:53:42 0.5 0.0-2.0 (%) Final Immature Granulocyte, Percent 09/17/2023 09:53:42 4.0 Above high normal 0.0-2.0 (%) Final Absolute Segs 09/17/2023 09:53:42 8.88 Above high normal 1.80-7.70 (K/uL) Final Lymphs, absolute 09/17/2023 09:53:42 1.59 1.00-4.80 (K/ul) Final Monos, Abs 09/17/2023 09:53:42 0.76 0.00-1.10 (K/uL) Final Eos, Abs 09/17/2023 09:53:42 0.08 0.00-0.70 (K/uL) Final Basos, Abs 09/17/2023 09:53:42 0.06 0.00-0.20 (K/uL) Final Immature Granulocytes, Number 09/17/2023 09:53:42 0.47 Above high normal 0.00-0.20 (K/uL) Final Performing Location [facility]ORY [facility] - [address] [place] [address]
--- OUTSIDE RECORDS SUMMARY | 2023-12-09 07:32 | External Medical Summary ---
Author Name Unknown Address Unknown Organization K01:[facility] [place] [address] [facility] [place] [place] [address] Laboratory Report Ordering Provider Test Date Status RUT WOODS 09/17/2023 09:53:42 Final Observation Date Value Abnormality Reference (Units ) Status WBC, Total 09/17/2023 09:53:42 11.84 Above high normal 4 .00-10.80 (K/uL) Final RBC 09/17/2023 09:53:42 4.06 3.85-5.15 (M/uL) Final Hemoglobin 09/17/2023 09:53:42 12.2 12.0-15.3 (g/dL) Final Anemia reflex testing trigge rs on a HGB < 12.0 for Females and HGB < 13.0 for Males in accordance with the WHO Anemia Guidelines
Anemia reflex testing triggers on a HGB < 12.0 for Females and HGB < 13.0 for Males in accordance with the WHO Anemia Guidelines HCT 09/17/2023 09:53:42 38.0 36.0-45.2 (%) Final MCV 09/17/2023 09:53:42 93.6 81.5-97.5 (fL) Final MCH 09/17/2023 09:53:42 30.0 27.0-34.0 (pg) Final MCHC 09/17/2023 09:53:42 32.1 32.0-36.0 (g/dL) Final RDW 09/17/2023 09:53:42 13.5 11.5-15.5 (%) Final Platelets 09/17/2023 09:53:42 237 140-400 (K /uL) Final MPV 09/17/2023 09:53:42 10.4 6.6-11.1 ( fL) Final Nucleated erythrocytes/100 leukocytes [Ratio] in Blood by Automated count 09/17/2023 09:53:42 0 <=0 (/100 WBCs) [facility] Performing Location [facility] [place] [address] [facility] [address]
--- OUTSIDE RECORDS SUMMARY | 2023-12-09 07:32 | External Medical Summary | Summary of Care ---
Author Name Unknown Organization [facility] Address [address] [facility] [place] [address] Phone [phone] Care Team Providers Care Vacuum Repairer Name Role Phone Efra Simmons PA-C Primary Care Provi yasmeen Reason for Visit * Reason Comments Outpatient Testing Encounter Details Date Type Department Care Team (Late st Contact Info) Description 09/17/2023 9:00 AM EST Laboratory Laboratory, [facility] [address] [facility] [place] [address] [facility] [address] [facility] [address] Normal in second trimester Allergies Active Allergy Reactions Criticality Noted Date Comments Amoxicillin 01/02/2023 Hives , swollen throat Cefprozil 01/02/2023 hives documented as of this encounter (statuses as of 09/17/2023) Medications Medication Sig Dispensed Refills Start Date [...] as of this encounter (statuses as of 09/17/2023) Active Problems Problem Noted Date Diagnosed Date [...] as of this encounter (statuses as of 09/17/2023) Immunizations Name Administration Dates Next Due TDAP [...] money to get more. Never true 04/08/2023 [place] Depression Scale Answer Date Recorded [place] Depression Scale Total 2 09/17/2023 The thought [...] Team (Late st Contact Info) Description 09/17/2023 1:30 PM EST Imaging Radiology [address] [place] [address] 10/01/2023 9:15 AM EST Office Visit Gynecology/Obstetrics [address] [place] [address] Tiffany Price CRNP [address] [place] [address] Pending Results Name Type Priority Associated Diagnoses Date /Time 50-G GESTATIONAL GLUCOSE, 1 HOUR Lab Routine Normal in second trimester 09/17/2023 9:53 AM EST SYPHILIS ANTIBODY SCREEN WITH REFLEX TO RPR Lab Routine Normal in second trimester 09/17/2023 9:53 AM EST CBC WITH WBC DIFFERENTIAL AND ANEMIA REFLEX WORKUP Lab Routine Normal in second trimester 09/17/2023 9:53 AM EST SYPHILIS ANTIBODY SCREEN Lab Routine Normal in second trimester 09/17/2023 9:53 AM EST ANEMIA CBC Lab Routine Normal in second trimester 09/17/2023 9:53 AM EST DIFFERENTIAL, AUTOMATED Lab Routine Normal in second trimester 09/17/2023 9:53 AM EST ANEMIA REFLEX CHEMISTRY HOLD Lab Routine Normal in second trimester 09/17/2023 9:53 AM EST Health Maintenance Due Date Last Done [...] encounter Visit Diagnoses Diagnosis Normal in second trimester documented in this encounter Care Teams Vacuum Repairer Relationship Specialty Start Date End Date Efra Simmons PA-C [address] [facility] [place] [address] PCP - General Physician Mechanical Systems Engineer 04/04/23 documented as of this encounter
--- OUTSIDE RECORDS SUMMARY | 2023-12-09 07:32 | External Medical Summary | Summary of Care ---
Author Name Unknown Organization [facility] Address [address] [facility] [place] [address] Phone [phone] Care Team Providers Care Territory Service Representative Name Role Phone Efra Simmons PA-C Primary Care Provi yasmeen Reason for Referral * Evaluate & Treat - Unlimited Visits (Within 10 days (routine)) - Pending Review Specialty Diagnoses / Procedures Referred By Mara salvador Referred To Contact Physical Therapy / Physical Medicine And Rehab Diagnoses Pelvic pain affecting in third trimester, antepartum Jenny Mosher CRNP [address] [employer] [place] [address] Referral ID Status Reason Start Date Expiration Date Visits Requested Visits Authorized [id number] Pending Review Specialty Services Required 11/15/[phone] Question Answer Referral Priority Within 10 days (routine) Where should this appointment be scheduled? [facility] Reason for Visit * Reason Comments Return Visit Encounter Details Date Type Department Care Team ([facility] st Contact Info) Description 11/15/2023 8:45 AM EST Office Visit Gynecology/Obstetric s [facility] [address] [place] [address] Jenny Mosher CRNP [email or web address] [place] [address] Normal in third trimester*; History of pre-eclampsia [...] money to get more. Never true 04/08/2023 [place] Depression Scale Answer Date Recorded [place] Depression Scale Total 1 11/01/2023 The thought [...] pelvic floor physical therapists - Jakob Cameron: [email or web address], . Website [email or web address] - [facility]: [email or web address]. [phone] - Energy: [phone] - Christy: [email or web address]. documented in this encounter [...] of local providers. Return in 1 week. Slasher Sawyer Documentation Provider requested community relations coordinator. Name of community relations coordinator: JEVON Londono LPN documented in this encounter [...] 11/22/2023 8:45 AM EST Office Visit Gynecology/Obstetrics [facility] [address] [place] [address] Tiffany Price CRNP 132 [place] [address] 11/29/2023 8:45 AM EST Office Visit Gynecology/Obstetrics [facility] [address] [place] [address] Tiffany Price CRNP [address] [place] [address] 12/06/2023 8:45 AM EDT Office Visit Gynecology/Obstetrics [facility] 132 [facility] [place] [address] Tiffany Price CRNP 132 [facility] [place] [address] 12/09/2023 8:45 AM EDT Office Visit Gynecology/Obstetrics [facility] 132 [facility] [place] [address] Cristina Loyd, DNP, CNM [address] [facility] [place] [address] Pending Results Name Type Priority Associated Diagnoses [...] antepartum documented in this encounter Care Teams Territory Service Representative Relationship Specialty Start Date End Date Efra Simmons PA-C [address] [facility] [address] PCP - General Physician Management Professor 04/04/23 documented as of this encounter
--- OUTSIDE RECORDS SUMMARY | 2023-12-09 07:32 | External Medical Summary | Summary of Care ---
Author Name Unknown Organization [facility] Address [address] [facility] [place] [address] Phone [phone] Care Team Providers Care Hat Brim Curler Name Role Phone Efra Simmons PA-C Primary Care Provi yasmeen Reason for Visit * Reason Comments Return Visit Encounter Details Date Type Department Care Team (Late st Contact Info) Description 09/17/2023 9:15 AM EST Office Visit Gynecology/Obstetric s [facility] [address] [place] [address] Tiffany Price CRNP [address] [place] [address] Normal in second trimester*; History of pre-eclampsia in prior , currently ; Obesity in , antepartum; Uterine size date discrepancy Allergies Active Allergy Reactions Criticality Noted Date [...] for Nausea. 40 Tablet 1 09/17/2023 Active documented as of this encounter (statuses [...] money to get more. Never true 04/08/2023 [place] Depression Scale Answer Date Recorded [place] Depression Scale Total 2 09/17/2023 The thought [...] Sign Reading Time Taken Comments Blood Pressure 104/66 09/17/2023 9:08 AM EST Pulse - - Temperature - - Respiratory Rate - - Oxygen Saturation - - Inhaled Oxygen Concentration - - Weight 109.8 kg (242 lb) 09/17/2023 9:08 AM EST Height 172.7 cm (5' 8") 09/17/2023 9:08 AM EST Body Mass Index 36.8 09/17/2023 9:08 AM EST documented in this encounter Progress Notes * Tiffany Price CRNP - 09/17/2023 9:37 AM EST 27w6d Was given an oil based drop for pink eye 2 weeks ago, developed an allergic reaction. She can't getin with PCP, and urgent care won't give her anything different d/t . She is using Clear Eyes drops and Pataday. States eye is red and crusted over when she gets up in the morning, but then with use of drops looks better. At appt, both eyes appear clear. Recommend PCP or urgent care, as this is not an OB issue, and eye does not look concerning at this moment in time. Nausea worsening, asking for zofran. Rx sent. Discussed constipation, colace if needed. Baby is active. No contractions or bleeding. Glucola, TDAP today. Size>dates. Growth u/s ordered. JEVON Ross * Olga Han LPN - 09/17/2023 9:11 AM EST 27w6d Had pink eye 2 weeks ago, was originally rx azithromycin oil and was allergic. [facility] would not prescribe another ATB due to , told to f/u with her OB. Isn't able to get into PCP. Daily nausea and vomiting- still doing B, would like to try Zofran. documented in this encounter Nursing Notes * Olga Han LPN - 09/17/2023 9:23 AM EST Patient here for tdap injection. Patient doing well no complaints. Injection given IM as ordered. Patient tolerated well. Patient to follow up as directed. Patient instructed to call if any complications. Patient verbalized understanding of instructions given and her follow up appt for REED. Injection site: Left Deltoid Medication Source: Dispensed stock medication documented in this encounter Plan of Treatment Upcoming Encounters Date Type Department Care Team (Late st Contact Info) Description 09/17/2023 1:30 PM EST Imaging Radiology [address] [place] [address] 10/01/2023 9:15 AM EST [facility] [address] [place] [address] Tiffany Price CRNP [address] [place] [address] Scheduled Orders Name Type Priority Associated Diagnoses Orde r Schedule US PREG FOLLOW-UP EACH FETUS Medical Imaging Routine Uterine size date discrepancy Expected: 09/17/2023 (Approximate), Expires: 10/18/2024 Health Maintenance Due Date Last Done Comments [...] or the puerperium, antepartum condition or complication Uterine size date discrepancy Uterine size date discrepancy, antepartum condition or complication documented in this encounter Care Teams Hat Brim Curler Relationship Specialty Start Date End Date Efra Simmons PA-C [facility] [facility] [address] PCP - General Physician Map Compiler 04/04/23 documented as of this encounter
--- OUTSIDE RECORDS SUMMARY | 2023-12-09 07:32 | External Medical Summary | Summary of Care ---
Author Name Unknown Organization [facility] Address [address] [facility] [place] [address] Phone [phone] Care Team Providers Care Radiation Monitor Name Role Phone Efra Simmons PA-C Primary Care Provi yasmeen Reason for Visit * Reason Comments Return Visit Encounter Details Date Type Department Care Team (Late st Contact Info) Description 11/01/2023 10:45 AM EST Office Visit Gynecology/Obstetric s [facility] [address] [place] [address] BackerJenny CRNP [address] [place] [address] Normal in third trimester*; History of pre-eclampsia in prior , currently ; Obesity in , antepartum; Antepartum tachycardia affecting care of mother [O36.8390] Allergies Active Allergy Reactions Criticality Noted Date Comments Amoxicillin 01/02/2023 Hives , swollen throat Cefprozil 01/02/2023 hives documented as of this encounter (statuses as of 11/01/2023) Medications Medication Sig Dispensed Refills Start Date [...] as of this encounter (statuses as of 11/01/2023) Active Problems Problem Noted Date Diagnosed Date [...] as of this encounter (statuses as of 11/01/2023) Immunizations Name Administration Dates Next Due TDAP [...] money to get more. Never true 04/08/2023 [place] Depression Scale Answer Date Recorded [place] Depression Scale Total 1 11/01/2023 The thought [...] Sign Reading Time Taken Comments Blood Pressure 122/76 11/01/2023 10:36 AM EST Pulse - - Temperature - - Respiratory Rate - - Oxygen Saturation - - Inhaled Oxygen Concentration - - Weight 112.5 kg (248 lb) 11/01/2023 10:36 AM EST Height - - Body Mass Index 37.71 10/18/2023 8:41 AM EST documented in this encounter Progress Notes * Kirti Castaneda LPN - 11/01/2023 10:36 AM EST 34w2d Denies vaginal bleeding Has been noticing ? Fluid loss for past 2 weeks- not consistently wet but happens at random. Clear-does not smell like urine + movement Has been having ongoing BARRERA x3 days- tylenol does not help. Denies vision changes Unexplained swelling- face, hands, feet. * Jenny Mosher CRNP - 11/01/2023 10:36 AM EST 34w2d Baby very active. Feels she has been leaking on and off for a few weeks. Does not think it's urine. Denies itching/burning. No regular ctx or bleeding. On exam, no pooling and neg Nitrazine. Physiologic discharge noted. +swelling, persistent BARRERA. She had been vomiting. Feels she is well hydrated. Tylenol was not helpful. No vision changes, epigastric pain. BP is normal and no proteinuria. Discussed pushing fluids, rest, caffeine. Reviewed preE warning signs and when to call. Gross movement while auscultating FHR in 170-180s. NST reactive with normal baseline. Growth ultrasound is scheduled in 2 weeks. Labor instructions provided. 2 week return. Hogshead Dumper Documentation Provider requested building rental superintendent. Name of building rental superintendent: JEVON Perez LPN ASSESSMENT assessment with Non-stress Test completed on 11/01/2023 at 34.2 weeks gestation for indication of tachycardia heart baseline: 130 bpm Variability: Moderate Decelerations: absent Accelerations: present Contractions: None NST start time: 1101 NST stop time: 1143 NST strip reviewed, interpreted, and approved by OB provider, JEVON Jordan . NST strip stored in clinic storage file documented in this encounter Plan of Treatment Upcoming Encounters Date Type Department Care Team (Late st Contact Info) Description 11/15/2023 7:30 AM EST Imaging Radiology [facility] [address] [place] [address] 11/15/2023 8:45 AM EST Office Visit Gynecology/Obstetrics [facility] [address] [place] [address] Jenny Mosher CRNP [address] [place] [address] 11/22/2023 8:45 AM EST Office Visit Gynecology/Obstetrics [facility] [address] [place] [address] Tiffany Price CRNP [address] [place] [address] 11/29/2023 8:45 AM EST Office Visit Gynecology/Obstetrics [facility] [address] [place] [address] Tiffany Price CRNP [address] [place] [address] 12/06/2023 8:45 AM EDT Office Visit Gynecology/Obstetrics [facility] [address] [place] [address] Tifafny Price CRNP [address] [place] [address] 12/09/2023 8:45 AM EDT Office Visit Gynecology/Obstetrics [facility] 132 [facility] [place] [address] Cristina Loyd, DNP, CNM [address] [facility] [place] [address] Health Maintenance Due Date Last Done Comments Hepatitis B (1 of 3 - 3-dose series) 1996 COVID-19 Vaccine (#1) 1996 Influenza Vaccine (FLU shot) (#1) 2023 Depression [...] Not on filedocumented as of this encounter Procedures Procedure Name Priority Date/Time Associated Diagnosis Comments URINALYSIS, POINT OF CARE (ENTER/EDIT) Routine 11/01/2023 Normal in third trimester History of pre-eclampsia in prior , currently documented in this encounter Results * URINALYSIS, POINT OF CARE (ENTER/EDIT) (11/01/2023) Color, Urine Yellow Yellow or Light Yellow Clarity, Urine Clear Clear Glucose, Urine Negative Negative mg/dL Bilirubin, Urine Negative Negative Ketone, Urine Negative Negative mg/dL Specific [place], Urine 1.020 1.003 - 1.030 Blood, Urine Negative Negative pH, Urine 7.5 5.0 - 7.5 units Protein, Urine Negative Negative mg/dL Urobilinogen, Urine 0.2 0.2 - 1.0 mg/dL Nitrite, Urine Negative Negative Esterase, Urine Negative Negative Urine 11/01/2023 Jenny Lawer JEVON LAB POINT O F CARE TEST ENTER/EDIT ORDERABLES documented in this encounter Visit Diagnoses Diagnosis Normal in third trimester- Primary History of pre-eclampsia in prior , currently with other poor obstetric history Obesity in , antepartum Obesity complicating , childbirth, or the puerperium, antepartum condition or complication Antepartum tachycardia affecting care of mother [O36.8390] Abnormality in heart rate/rhythm, antepartum condition or complication documented in this encounter Care Teams Radiation Monitor Relationship Specialty Start Date End Date Efra Simmons PA-C [facility] [facility] [address] PCP - General Physician Hoister 04/04/23 documented as of this encounter
--- OUTSIDE RECORDS SUMMARY | 2023-12-09 07:32 | External Medical Summary | Summary of Care ---
Author Name Unknown Organization [facility] Address [address] [facility] [place] [address] Phone [phone] Care Team Providers Care Cupola Charger Insulation Name Role Phone Efra Simmons PA-C Primary Care Provi yasmeen Encounter Details Date Type Department Care Team (Late st Contact Info) Description 09/25/2023 Telephone Gynecology/Obstetrics [facility] [address] [place] [address] Haresh Dominguez MD [address] [place] [address] Allergies Active Allergy Reactions Criticality Noted Date Comments Amoxicillin 01/02/2023 Hives , swollen throat Cefprozil 01/02/2023 hives documented as of this encounter (statuses as of 09/25/2023) Medications Medication Sig Dispensed Refills Start Date [...] as of this encounter (statuses as of 09/25/2023) Active Problems Problem Noted Date Diagnosed Date [...] as of this encounter (statuses as of 09/25/2023) Immunizations Name Administration Dates Next Due TDAP [...] money to get more. Never true 04/08/2023 [place] Depression Scale Answer Date Recorded [place] Depression Scale Total 2 09/17/2023 The thought [...] Telephone Encounter - Ama Corcoran LPN - 09/25/2023 11:51 AM EST Pt is currently 29w0d with an Estimated Date of Delivery: 12/11/23 - Above belly button, very hard and tender and pain radiating around left side into her back. +FM. Denies bleeding or contractions. Denies being constipated. Has tried Tylenol, belly band for support, warm shower with no relief. Per Diane Sellers in the office patient to try gas x and if after a couple hours pain is persistent she should call back into the office. Patient agreeable. documented in this encounter Plan of Treatment Upcoming Encounters Date Type Department Care Team (Late st Contact Info) Description 10/01/2023 9:15 AM EST [facility] [address] [place] [address] Tiffany Price CRNP [address] [place] [address] Health Maintenance Due Date Last Done Comments [...] filedocumented as of this encounter Care Teams Cupola Charger Insulation Relationship Specialty Start Date End Date Efra Simmons PA-C [address] [place] [address] PCP - General Physician Basket Bottom Machine Operator 04/04/23 documented as of this encounter
--- OUTSIDE RECORDS SUMMARY | 2023-12-09 07:32 | External Medical Summary | Summary of Care ---
Author Name Unknown Organization [facility] Address [address] [facility] [place] [address] Phone [phone] Care Team Providers Care Technical Education Teacher Name Role Phone Efra Simmons PA-C Primary Care Provi yasmeen Reason for Visit * Reason Comments Return Visit Encounter Details Date Type Department Care Team (Late st Contact Info) Description 10/18/2023 8:45 AM EST Office Visit Gynecology/Obstetric s [facility] [address] [place] [address] Baldomero Avila MD [address] [place] [address] Normal in third trimester*; History of pre-eclampsia in prior , currently ; Obesity in , antepartum Allergies Active Allergy Reactions Criticality Noted Date Comments Amoxicillin 01/02/2023 Hives , swollen throat Cefprozil 01/02/2023 hives documented as of this encounter (statuses as of 10/18/2023) Medications Medication Sig Dispensed Refills Start Date [...] as of this encounter (statuses as of 10/18/2023) Active Problems Problem Noted Date Diagnosed Date [...] as of this encounter (statuses as of 10/18/2023) Immunizations Name Administration Dates Next Due TDAP [...] money to get more. Never true 04/08/2023 [place] Depression Scale Answer Date Recorded [place] Depression Scale Total 2 09/17/2023 The thought [...] Sign Reading Time Taken Comments Blood Pressure 108/80 10/18/2023 8:41 AM EST Pulse - - Temperature - - Respiratory Rate - - Oxygen Saturation - - Inhaled Oxygen Concentration - - Weight 109.8 kg (242 lb) 10/18/2023 8:41 AM EST Height 172.7 cm (5' 8") 10/18/2023 8:41 AM EST Body Mass Index 36.8 10/18/2023 8:41 AM EST documented in this encounter Progress Notes * Baldomero Avila MD - 10/18/2023 9:11 AM EST Pt doing well No complaints Growth scan today 85 percentile FRANSICO; 17 Plan Repeat scan in 4-6 weeks documented in this encounter Nursing Notes * Olga Han LPN - 10/18/2023 8:42 AM EST 32w2d Growth today- measuring 33w4d, 85th%. FRANSICO 17.1cm, vertex. C/o LOF- daily, has been happening several times a day for the past 2 days. documented in this encounter Plan of Treatment Upcoming Encounters Date Type Department Care Team (Late st Contact Info) Description 10/25/2023 9:45 AM EST Office Visit Gynecology/Obstetrics [facility] [address] [place] [address] Diane Chavez PA-C [address] [place] [address] 10/30/2023 1:15 PM EST Office Visit Gynecology/Obstetrics [facility] [address] [place] [address] Diane Chavez PA-C [address] [place] [address] 11/01/2023 10:45 AM EST Office Visit Gynecology[facility]Obstetrics [facility] [address] [place] [address] Jenny Mosher, JEVON [address] [place] [address] 11/15/2023 7:30 AM EST Imaging Radiology [facility] [address] [place] [address] 11/15/2023 8:45 AM EST [facility] [address] [place] [address] Jenny Mosher, JEVON [address] [place] [address] 11/22/2023 8:45 AM EST Office Visit Gynecology/Obstetrics [facility] [address] [place] [address] Tiffany Price CRNP [address] [place] [address] 11/29/2023 8:45 AM EST Office [facility] [address] [place] [address] Tiffany Price CRNP [address] [place] [address] 12/06/2023 8:45 AM EDT Office [facility] [address] [place] [address] Tiffany Price CRNP [address] [place] [address] 12/09/2023 8:45 AM EDT Office [facility] [address] [place] [address] Cristina Loyd R, DNP, CNM [address] [place] [address] [place] [id number] Scheduled Orders Name Type Priority Associated Diagnoses Orde r Schedule US PREG FOLLOW-UP EACH FETUS Medical Imaging Routine Normal in third trimester History of pre-eclampsia in prior , currently Obesity in , antepartum Expected: 11/18/2023, Expires: 11/18/2024 Health Maintenance Due Date Last Done Comments [...] complication documented in this encounter Care Teams Technical Education Teacher Relationship Specialty Start Date End Date Efra Simmons PA-C [address] [place] [address] PCP - General Physician Earth Moving Technician 04/04/23 documented as of this encounter
--- OUTSIDE RECORDS SUMMARY | 2023-12-09 07:32 | External Medical Summary ---
Author Name Unknown Address Unknown Organization K01:LABORATORY [facility] - [address] [facility] [address] Laboratory Report Ordering Provider Test Date Status RUT WOODS 09/17/2023 09:53:42 Final Observation Date Value Abnormality Reference (Units ) Status Treponema pallidum Ab [Presence] in Serum by Immunoassay 09/17/2023 09:53:42 Nonreactive Nonreactive Final No serologic evidence of syp hilis. No additional testing clinicially indicated at this time. Consider repeat testing in 2-4 weeks if acute or primary syphilis is suspected. Performing Location LABORATORY [facility] - [address] [place] [address]
--- OUTSIDE RECORDS SUMMARY | 2023-12-09 07:32 | External Medical Summary | Summary of Care ---
Author Name Unknown Organization [facility] Address [address] [facility] [place] [address] Phone [phone] Care Team Providers Care Export Freight Specialist Name Role Phone Efra Simmons PA-C Primary Care Provi yasmeen Encounter Details Date Type Department Care Team (Late st Contact Info) Description 10/24/2023 Telephone Gynecology/Obstetrics Shahrain Bedoya [address] [place] [address] Baldomero Avila MD [address] [place] [address] Allergies Active Allergy Reactions Criticality Noted Date Comments Amoxicillin 01/02/2023 Hives , swollen throat Cefprozil 01/02/2023 hives documented as of this encounter (statuses as of 10/24/2023) Medications Medication Sig Dispensed Refills Start Date [...] as of this encounter (statuses as of 10/24/2023) Active Problems Problem Noted Date Diagnosed Date [...] as of this encounter (statuses as of 10/24/2023) Immunizations Name Administration Dates Next Due TDAP [...] money to get more. Never true 04/08/2023 [place] Depression Scale Answer Date Recorded [place] Depression Scale Total 2 09/17/2023 The thought [...] Description 11/01/2023 10:45 AM EST Office [facility] [address] [place] [address] Jenny Mosher CRNP [address] [place] [address] 11/15/2023 7:30 AM EST [facility] [address] [place] [address] 11/15/2023 8:45 AM EST Office Visit [facility] [address] [place] [address] Jenny Mosher CRNP [address] [place] [address] 11/22/2023 8:45 AM EST Office Visit [facility] [address] [place] [address] Tiffany Price CRNP [address] [place] [address] 11/29/2023 8:45 AM EST Office [facility] [address] [place] [address] Tiffany Price CRNP [address] [place] [address] 12/06/2023 8:45 AM EDT Office [facility] [address] [place] [address] Tiffany Price CRNP [address] [place] [address] 12/09/2023 8:45 AM EDT Office Visit Gynecology/Obstetrics [facility] [address] [place] [address] Cristina Loyd, DNP, CNM [address] [place] [address] Health Maintenance Due Date Last Done Comments [...] filedocumented as of this encounter Care Teams Export Freight Specialist Relationship Specialty Start Date End Date Efra [facility] [facility] [address] PCP - General Physician Car Salesperson 04/04/23 documented as of this encounter
--- OUTSIDE RECORDS SUMMARY | 2023-12-09 07:33 | External Medical Summary | Summary of Care ---
Author Name Unknown Organization [facility] Address [address] [facility] [place] [address] Phone [phone] Care Team Providers Care Roll Forming Machine Set Up Mechanic Name Role Phone Efra Simmons PA-C Primary Care Provi yasmeen Encounter Details Date Type Department Care Team Description 07/02/2023 Telephone [facility] [address] [place] [address] Mik Voss MD [address] [place] [id number] Allergies Active Allergy Reactions Severity Noted Date Comments Amoxicillin 01/02/2023 Hives , swollen throat Cefprozil 01/02/2023 hives documented as of this encounter (statuses as of 07/02/2023) Medications Medication Sig Dispensed Refills Start Date [...] as of this encounter (statuses as of 07/02/2023) Active Problems Problem Noted Date History of pre-eclampsia in prior pregna ncy, currently 05/03/2023 Overview: Plan to start ASA at 12 weeks. Baseline labs at [facility]. Obesity 05/03/2023 PCOS (polycystic ovarian syndrome) 05/03 Normal 05/03/2023 Obesity in , antepartum 023 Overview: Class 1, early GTT wnl LGSIL on Pap smear of cervix 12/22/2022 Estimated Date of Delivery Comme nts Yes 12/11/2023 Based on last me nstrual period of 03/06/2023 documented as of this encounter (statuses as of 07/02/2023) Social History Tobacco Use Types Packs/Day Years Used Date Smoking Tobacco: Never Smokeless Tobacco: Never Alcohol Use Standard Drinks/Week Comments Not Currently 0 (1 standard drink = 0.6 oz pur e alcohol) Food Insecurity Answer Date Recorded Within the past 12 months, y ou worried that your food would run out before you got money to buy more. Never true 04/08/2023 Within the past 12 months, t he food you bought just didn't last and you didn't have money to get more. Never true 04/08/2023 Estimated Date of Delivery Comme nts Yes 12/11/2023 Based on last me nstrual period of 03/06/2023 Sex Assigned at Date Recorded Female 01/02/2023 3:12 PM E DT Job Start Date Occupation Industry Not on file Not on file Not on file documented as of this encounter Miscellaneous Notes * Telephone Encounter - Marychuy Bethea LPN - 07/02/2023 3:49 PM EDT Pt called back and said she will go to [facility] er due to it being closer to her. * Telephone Encounter - Ama Corcoran LPN - 07/02/2023 3:37 PM EDT Called number in chart 5 times, states number is disconnected. Called Spouse's number in chart. No answer and VM did not pharmacy picking technician, call ended. MyG sent * Telephone Encounter - Mik Bunn MD - 07/02/2023 3:28 PM EDT Recommend US for CL and U/A If can't she may come to ER Thanks * Telephone Encounter - Ama Corcoran LPN - 07/02/2023 2:13 PM EDT Pt is currently 16w6d with an Estimated Date of Delivery: 12/11/23 - Starting having severe constant cramping in her left pelvic area yesterday morning around 7:30 am. She has tried comfort measures; warm shower, heating pad, Tylenol, pushing fluids, position changes. Denies bleeding or discharge, denies burning with urination. She requested appt today with no openings, offered tomorrow but states she works. Will have Dr. Lambert review and advise. documented in this encounter Plan of Treatment Upcoming Encounters Date Type Specialty Care Team Description 07/24/2023 Imaging Radiology 07/24/2023 Office Visit Gynecology Obstetrics Tiffany Price, JEVON [address] [place] [address] Health Maintenance Due Date Last Done Comments [...] filedocumented as of this encounter Care Teams Roll Forming Machine Set Up Mechanic Relationship Specialty Start Date End Date Efra Simmons PA-C [address] [place] [address] PCP - General Physician Forging Machine Hand 04/04/23 documented as of this encounter
--- OUTSIDE RECORDS SUMMARY | 2023-12-09 07:33 | External Medical Summary | Summary of Care ---
Author Name Unknown Organization [facility] Address [address] [facility] [place] [address] Phone [phone] Care Team Providers Care Credit Intern Name Role Phone Efra Simmons PA-C Primary Care Provi yasmeen Encounter Details Date Type Department Care Team Description 06/21/2023 Telephone Gynecology/Obstetrics [facility] [address] [facility] [place] [address] Amanda Morales MD [facility] [place] [address] Allergies Active Allergy Reactions Severity Noted Date Comments Amoxicillin 01/02/2023 Hives , swollen throat Cefprozil 01/02/2023 hives documented as of this encounter (statuses as of 06/28/2023) Medications Medication Sig Dispensed Refills Start Date [...] as of this encounter (statuses as of 06/28/2023) Active Problems Problem Noted Date History of [...] as of this encounter (statuses as of 06/28/2023) Social History Tobacco Use Types Packs/Day Years [...] Telephone Encounter - Ama Corcoran LPN - 06/21/2023 9:10 AM EDT ----- Message from Amanda Morales MD sent at 06/21/2023 8:58 AM EDT ----- Please let patient know that qnatal is low risk, but screening test only If she wants to know sex, the screen detected female fetus Thank you ----- Message ----- From: Bobby Vargas Automated Processing Sent: 06/21/2023 3:40 AM EDT To: Amanda Morales MD documented in this encounter Plan of Treatment Upcoming Encounters Date Type Specialty Care Team Description 07/24/2023 Imaging Radiology 07/24/2023 Office Visit Gynecology Obstetrics Tiffany Price CRNP [address] [place] [address] Health Maintenance Due Date Last Done Comments [...] filedocumented as of this encounter Care Teams Credit Intern Relationship Specialty Start Date End Date Efra Simmons PA-C [address] [facility] [address] PCP - General Physician Etl Bi Developer 04/04/23 documented as of this encounter
--- OUTSIDE RECORDS SUMMARY | 2023-12-09 07:33 | External Medical Summary | Summary of Care ---
Author Name Unknown Organization [facility] Address [address] [facility] [place] [address] Phone [phone] Care Team Providers Care Overhead Cleaner Maintainer Name Role Phone Efra Simmons PA-C Primary Care Provi yasmeen Reason for Visit * Reason Comments Return Visit Encounter Details Date Type Department Care Team Description 06/24/2023 Office Visit Gynecology/Obstetrics [facility] [address] [place] [address] Jenny Mosher CRNP [address] [place] [address] Normal in second trimester*; History of pre-eclampsia in prior , currently ; Obesity in , antepartum Allergies Active Allergy Reactions Severity Noted Date Comments Amoxicillin 01/02/2023 Hives , swollen throat Cefprozil 01/02/2023 hives documented as of this encounter (statuses as of 06/24/2023) Medications Medication Sig Dispensed Refills Start Date [...] as of this encounter (statuses as of 06/24/2023) Active Problems Problem Noted Date History of [...] as of this encounter (statuses as of 06/24/2023) Social History Tobacco Use Types Packs/Day Years [...] Sign Reading Time Taken Comments Blood Pressure 106/68 06/24/2023 1:41 PM EDT Pulse - - Temperature - - Respiratory Rate - - Oxygen Saturation - - Inhaled Oxygen Concentration - - Weight 99.3 kg (219 lb) 06/24/2023 1:41 PM EDT Height - - Body Mass Index 33.3 05/24/2023 2:14 PM EDT documented in this encounter Progress Notes * JEVON Linares - 06/24/2023 1:48 PM EDT 15w5d Will complete MSAFP. + movement. No bleeding. Some cramping when she over exerts herself. Discussed weight loss - reports low appetite due to conflicts with ex. Encouraged nutrient dense snacks throughout the day, adequate protein. 4 week return, anatomy scan at 20 weeks. JEVON Jordan documented in this encounter Nursing Notes * Kirti Castaneda LPN - 06/24/2023 1:43 PM EDT 15w5d Denies vaginal bleeding/rom + movement Interested in MSAFP documented in this encounter Plan of Treatment Upcoming Encounters Date Type Specialty Care Team Description 07/24/2023 Imaging Radiology 07/24/2023 Office Visit Gynecology Obstetrics Tiffany Price CRNP [address] [place] [address] Scheduled Orders Name Type Priority Associated Diagnoses Orde r Schedule US PREG SINGLE/1ST GEST, 14 WEEKS OR LATER Medical Imaging Routine Normal in second trimester Expected: 07/24/2023 (Approximate), Expires: 07/25/2024 MATERNAL SERUM AFP Lab Routine Normal in second trimester Expected: 06/24/2023, Expires: 06/24/2024 Health Maintenance Due Date Last Done Comments [...] complication documented in this encounter Care Teams Overhead Cleaner Maintainer Relationship Specialty Start Date End Date Efra Simmons PA-C [address] [facility] [address] PCP - General Physician Four H Agent 04/04/23 documented as of this encounter
--- OUTSIDE RECORDS SUMMARY | 2023-12-09 07:33 | External Medical Summary | Summary of Care ---
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 0 Active documented as of this encounter (statuses as of 06/12/2023) Active Problems Problem Noted Date History of [...] as of this encounter (statuses as of 06/12/2023) Social History Tobacco Use Types Packs/Day Years [...] Encounters Date Type Specialty Care Team Description 06/24/2023 Office Visit Gynecology Obstetrics BackerJenny CRNP [address] [place] [address] Health Maintenance Due Date Last Done Comments Hepatitis B (1 of 3 - 3-dose series) 1996 COVID-19 Vaccine (#1) 1996 Depression Screening 2008 Influenza Vaccine (FLU shot) (#1) 2023 Pap Smear 01/02/2026 01/02/2023 DTaP,Tdap,and Td Vaccines (2 - Td or Tdap) 09/22/2029 09/22/2019 Hepatitis C Screening Completed 05/03/2023 , 05/03/2023, 05/03/2023 GARDASIL-HPV IMMUNIZATION SERIES Aged Out No longer eligible b ased on patient's age to complete this topic MENINGOCOCCAL (MENACTRA/MENVEO) Aged Out No longer eligible b ased on patient's age to complete this topic Pneumococcal Vaccine: Pediatrics (0 to 5 Years) and At-Risk Patients (6 to 64 Years) Aged Out No longer eligible b ased on patient's age to complete this topic documented as of this encounter Medical Devices Not on filedocumented as of this encounter Procedures Procedure Name Priority Date/Time Associated Diagnosis Comments OUTSIDE LAB RESULTS 05/01/2023 RADIOLOGY SCANNED RESULT 05/01/2023 documented in this encounter Results * RADIOLOGY SCANNED RESULT (05/01/2023) 05/01/2023 No Physician Data Unknown DIAGNOSTIC RAD IOLOGY SERVICES * OUTSIDE LAB RESULTS (05/01/2023) 05/01/2023 No Physician Data Unknown LABORATORY documented in this encounter Care Teams Water Plant Pump Operator Relationship Specialty Start Date End Date Efra Simmons PA-C [address] [place], [place] [phone] PCP - General Physician Diesel 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
[2023-12-09] MEDS ORDERED: OXYTOCIN 30 UNITS/NSS 30 UNITS/500 ML BAG IV PRN ×2 (08:14→20:37)
[2023-12-09] MEDS ORDERED: LIDOCAINE 1% LOCAL 20 ML VIAL INFIL PRN (08:14)
[2023-12-09 08:44] LABS: Hematocrit (blood only) 35.8 % (37.0-47.0); Hemoglobin 11.6 g/dl (12.0-16.0); Mean Corpuscular Hemoglobin 26.5 pg (25.0-34.0); Mean Corpuscular Hgb Conc 32.4 g/dL (32.0-36.0); Mean Corpuscular Volume 81.7 fL (80.0-100.0); Mean Platelet Volume 10.5 fL (9.4-12.4); Platelet Count 250 K/uL (130-400); RDW Coefficient of Variation 15.2 % (11.5-14.5); RDW Standard Deviation 44.8 fL (36.4-46.3); Red Blood Count 4.38 M/uL (4.20-5.40); White Blood Count 14.46 K/ul (4.8-10.8)
[2023-12-09] MEDS: DINOPROSTONE 10 MG INSERT PV ONE (08:50)
--- NOTE | 2023-12-09 09:04 | History & Physical Report ---
Date of Service December 09, 2023 Assessment & Plan (1) Elective induction of labor planned: Plan: 28-year-old -0-1-1 at 39 weeks and 5 days of gestation presenting today for scheduled induction of labor for LGA, EFW was at 95 percentile on November 10, today's bedside ultrasound shows 4250 g, history of 4 years ago, Vital signs stable afebrile, GBS negative, heart rate reassuring, Cervix unfavorable, Discussed the findings and recommendation from ACOG, primary if EFW over 5000 g, Discussed risks of LGA with shoulder dystocia, Patient understands all and desires for trial of vaginal , Cervidil is placed posterior fornix, Continue to monitor closely. (2) Obesity affecting in third trimester, antepartum: (3) Tobacco use affecting , antepartum: Admission and Anticipated Discharge Date Admission Date: December 09, 2023 History of Present Illness Primary Care Provider: NO PCP Patient is a 28-year-old -0-1-1 at 39 weeks and 5 days of gestation who was scheduled for induction of labor at term for LGA. Her growth ultrasound in November 10 showed EFW: 3413 g 95th percentile. She has no complaints. She denies contractions, leakage of fluid, vaginal bleeding. She reports good movements. She has delivered 8 pound 5 ounce baby 4 years ago without shoulder dystocia. Her has been uncomplicated except obesity and tobacco use, vapes. Allergies Allergy/AdvReac Type Severity Reaction Status Date / Time amoxicillin Allergy Hives, Verified 01/30/23 08:36 throat swelling cefuroxime [From Ceftin] Allergy Hives Verified 01/30/23 08:36 Home Medications Medication Instructions Recorded Confirmed Type ibuprofen 600 mg tablet 600 mg PO TID #21 tabs 01/30/23 Rx Patient History Medical History Family history of pseudocholinesterase deficiency Maternal grandmother, no further details per PAT RN phone interview Hx of migraines Surgical History Hx laparoscopic cholecystectomy Hx of wisdom tooth extraction Social History Smoking Status: Current every day smoker Tobacco Type: E-cigarettes / Vaping Second Hand Exposure: Yes; Do You Dip or Chew Tobacco: No; Tobacco Cessation Education Requested by Patient: No Hx Alcohol Use: No Hx Substance Use: No Preferred Language: Tunisian Communication Ability: Effective Cutch Cleaner Required: No Beliefs That Will Affect Care: None marital status: Single Current Living Situation: Family and Significant Other Current Living Situation Comment: Ember- 4 y/o daughter Other Information That Helps Us Care for You: No Feels Safe at Home: Yes Safety Concerns: Feels Safe At This Time Assistive Devices: None OB History Full-term at [facility], viable infant 8 pounds 5 pounds 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 No history of STDs, no history of chlamydia, gonorrhea, herpes Review of Systems as per Subjective / HPI Physical Exam Constitutional: WD/WN, vitals as above Genitourinary: normal external appearance OB Exam Abdomen: + vertex Manual OB Exam: + cervical dilation fingertip, + cervical effacement 30% and + station high (Posterior) OB Exam Monitor Tracing: + external uterine monitor used and + category I Bedside ultrasound, vertex, EFW 4250 g,AFV normal, FHR 140's, FM, breathing seen Results & Data Vital Signs (Past 12 Hours) Vital Signs Temp Pulse Resp BP 12/09/23 08:51 121 H 111/79 12/09/23 07:48 120 H 127/83 12/09/23 07:41 36.4 C L 118 H 18 127/83 Laboratory Results Lab Results 12/09/23 Range/Units 08:21 WBC 14.46 H (4.8-10.8) K/ul RBC 4.38 (4.20-5.40) M/uL Hgb 11.6 L (12.0-16.0) g/dl Hct 35.8 L (37.0-47.0) % MCV 81.7 (80.0-100.0) fL MCH 26.5 (25.0-34.0) pg MCHC 32.4 (32.0-36.0) g/dL RDW Std Deviation 44.8 (36.4-46.3) fL RDW Coeff of Valentina 15.2 H (11.5-14.5) % Plt Count 250 (130-400) K/uL MPV 10.5 (9.4-12.4) fL
[2023-12-09] MEDS ORDERED: SODIUM CHLORIDE 0.9% 250 ML IV PRN (09:13)
[2023-12-09] MEDS: LACTATED RINGER'S 1,000 ML IV PRN (16:23)
[2023-12-09] MEDS ORDERED: ROPIVACAINE 0.5% PF 5 MG/ML 20 ML VIAL EPI PRN (16:49)
[2023-12-09] MEDS ORDERED: diphenhydrAMINE 50 MG/ML VIAL IV PRN (16:49)
[2023-12-09] MEDS ORDERED: SODIUM CHLORIDE 0.9% PF INJ 10 ML VIAL EPI PRN (16:49)
[2023-12-09] MEDS ORDERED: ePHEDrine sulfate 50 MG/ML AMP IV PRN (16:49)
[2023-12-09] MEDS ORDERED: fentaNYL citrate PF 100 MCG/2 ML VIAL EPI PRN (16:49)
[2023-12-09] MEDS ORDERED: NALBUPHINE HCL 5 MG in SYRINGE 0 ML IV PRN (16:49)
[2023-12-09] MEDS ORDERED: NALOXONE HCL 1 MG in SODIUM CHLORIDE 0.9% 1,000 ML IV PRN (16:49)
[2023-12-09] MEDS ORDERED: NALOXONE HCL 0.4 MG/1 ML VIAL/CARP IV PRN (16:49)
[2023-12-09] MEDS ORDERED: LIDOCAINE 2% MPF LOCAL 5 ML VIAL EPI PRN (16:49)
[2023-12-09] MEDS ORDERED: BUPIVACAINE 0.25% PF 30 ML VIAL EPI PRN (16:49)
[2023-12-09] MEDS ORDERED: fentANYL 2 MCG/ML BUPIVacaine 0.125%-NSS 100ML BAG EPI PRN (16:49)
--- NOTE | 2023-12-09 17:01 | Anesthesiology Consultation ---
Date of Service December 09, 2023 Assessment & Plan Chart Review Chart Review: Patient NOT seen in Pre Admission Testing and Acceptable Risk for Labor Epidural Consults Requested none ASA ASA3 Proposed Anesthesia Anesthesia Type: Labor Epidural Risk / Benefits Reviewed With: PT / POA / Parent / Guardian, Accepts Plan and Informed Consent Obtained History Height/Weight Height: 5 ft 6 in Weight: 114.305 kg Allergies Allergy/AdvReac Type Severity Reaction Status Date / Time amoxicillin Allergy Hives, Verified 01/30/23 08:36 throat swelling cefuroxime [From Ceftin] Allergy Hives Verified 01/30/23 08:36 Medications Home Medications Medication Instructions Recorded Confirmed Last Taken ibuprofen 600 mg tablet 600 mg PO TID #21 tabs 01/30/23 Unknown Active Medications Generic Name Dose Route Start Last Admin Trade Name Freq PRN Reason Stop Dose Admin Lactated Ringer's 1,000 mls @ 150 mls/hr 12/09/23 08:14 12/09/23 17:19 Lr IV 12/11/23 08:13 150 mls/hr .[id number] PRN Infusion L&D Protocol Protocol NPO Date Last Intake of Fluids: 12/09/23 Time Last Intake of Fluids: 16:30 Date Last Intake of Solids: 12/09/23 Time Last Intake of Solids: 04:00 Past Medical History Medical History Family history of pseudocholinesterase deficiency Maternal grandmother, no further details per PAT RN phone interview Hx of migraines Exercise / Class Metabolic Activity II 4-5 Yardwork/Stairs/Walk up hill Past Surgical History Surgical History Hx laparoscopic cholecystectomy Hx of wisdom tooth extraction History of PONV No Hx of PONV and No Hx of Motion Sickness Social History Smoking Status: Current every day smoker Do You Dip or Chew Tobacco: No Hx Alcohol Use: No Hx Substance Use: No substance use type: does not use Review of Systems ROS Unobtainable: All systems reviewed & are unremarkable except as noted in HPI & below Physical Exam Vital Signs Last Vital Signs Temp 36.5 C 12/09/23 16:00 Pulse 93 H 12/09/23 16:45 Resp 16 12/09/23 14:30 BP 137/69 12/09/23 16:45 Pulse Ox 100 12/09/23 16:45 Testing Laboratory Results 12/09/23 08:21 Blood Type A Positive 12/09/23 08:21 Antibody Screen NEGATIVE 12/09/23 08:21
[2023-12-09] MEDS: LIDOCAINE 2%/EPINEPHRINE 1:200,000 20 ML PF ONE (17:16)
[2023-12-09] MEDS: fentANYL 2 MCG/ML BUPIVacaine 0.125%-NSS 100ML BAG ONE (17:16)
[2023-12-09] MEDS: BUPIVACAINE 0.25% PF 30 ML VIAL ONE (17:16)
[2023-12-09] MEDS: fentaNYL citrate PF 100 MCG/2 ML VIAL ONE (17:16)
[2023-12-09] MEDS: SODIUM CHLORIDE 0.9% PF INJ 10 ML VIAL ONE (17:19)
[2023-12-09] MEDS: ePHEDrine sulfate 50 MG/ML AMP ONE (17:25)
--- NOTE | 2023-12-09 18:16 | Obstetrical Progress Note ---
Date of Service December 09, 2023 Assessment & Plan Admission and Anticipated Discharge Date Admission Date: December 09, 2023 Subjective Patient got painful 2 hours after Cervidil was placed then [facility]ed at 15:55, large clear fluid, Cervidil was removed Received epidural for pain, comfortable now VE; 5/ 70%/ -2 FHR categ I [place]: ctxs q 3-4 min Continue to monitor closely Augment with low dose Oxytocin Results & Data Vital Signs (Past 12 Hours) Vital Signs Temp Pulse Resp BP Pulse Ox 12/09/23 18:10 137 H 98 12/09/23 18:05 139 H 98 12/09/23 18:00 36.5 C 128 H 16 126/68 98 12/09/23 17:55 109 H 99 12/09/23 17:50 108 H 97 12/09/23 17:45 98 12/09/23 17:45 134 H 12/09/23 17:45 130 H 130/74 12/09/23 17:43 103 H 122/66 12/09/23 17:41 112 H 128/66 12/09/23 17:40 132 H 98 12/09/23 17:39 109 H 111/64 12/09/23 17:37 126 H 115/60 12/09/23 17:35 98 12/09/23 17:35 113 H 12/09/23 17:35 113 H 128/72 12/09/23 17:33 115 H 125/60 12/09/23 17:31 129 H 134/67 12/09/23 17:30 130 H 16 98 12/09/23 17:29 110 H 128/56 L 12/09/23 17:27 100 H 16 122/66 12/09/23 17:25 98 12/09/23 17:25 121 H 12/09/23 17:25 107 H 120/70 12/09/23 17:23 106 H 129/66 12/09/23 17:22 16 12/09/23 17:22 16 12/09/23 17:21 117 H 115/64 12/09/23 17:20 114 H 97 12/09/23 17:19 112 H 112/66 12/09/23 17:18 16 12/09/23 17:18 16 12/09/23 17:17 108 H 120/72 12/09/23 17:15 16 03/18/24 17:15 16 12/09/23 17:15 98 12/09/23 17:15 108 H 12/09/23 17:15 105 H 123/76 12/09/23 17:13 106 H 138/79 12/09/23 17:12 105 H 92 12/09/23 17:10 92 H 99 12/09/23 17:05 100 12/09/23 17:05 118 H 12/09/23 17:05 106 H 147/81 H 12/09/23 17:00 110 H 99 12/09/23 16:56 94 H 135/85 12/09/23 16:55 97 H 99 12/09/23 16:50 98 H 99 12/09/23 16:45 93 H 137/69 100 12/09/23 16:40 107 H 100 12/09/23 16:35 98 H 100 12/09/23 16:00 36.5 C 12/09/23 14:30 36.5 C 90 16 120/74 12/09/23 12:00 18 12/09/23 12:00 36.4 C L 18 12/09/23 11:51 122 H 123/74 12/09/23 08:51 121 H 111/79 12/09/23 07:48 120 H 127/83 12/09/23 07:41 36.4 C L 118 H 18 127/83
[2023-12-09] MEDS: OXYTOCIN 30 UNITS/NSS 30 UNITS/500 ML BAG IV PRN (18:20)
[2023-12-09] MEDS: METHYLERGONOVINE MALEATE 0.2 MG/ML AMP ONE (20:36)
[2023-12-09] MEDS ORDERED: bisacodyL 10 MG SUPP PR PRN (20:37)
[2023-12-09] MEDS ORDERED: HYDROCORTISONE ACETATE 25 MG SUPP PR PRN (20:37)
--- NOTE | 2023-12-09 20:44 | Delivery Summary ---
Vaginal Delivery Summary Date of Service December 09, 2023 Vaginal Delivery Summary Vaginal delivery with moderate Shoulder dystocia. Patient was found to be fully dilated and desires to push. She pushed for about 15 min and delivered the head and then turtle sign was noted. Unable to shoulders with minimal traction. Nursing staf was noted of shulder dystocia. The bed lowered down. Patient's leg were hyperextended with Yanick Krishnan's maneuver. The posterior ( left) shoulder and arm were delivered with y fingers under left axilla without difficulty. Then the anterior arm and whole body with minimal traction within less than a minute from delivery of the head.. The baby was handed off to the mother. The cord was clampedx2 and cut. The vagina and perineum were checked and found to have 1st degree perineal laceration. The vaginal mucosa was repaired with 2/0 vicryl and skin on subcuticular fashion. The placenta was delivered spontaneously as intact and complete. The uterus was explored and found to be empty. EBL was 300 ml. The fundus was firm The baby was a viable female , Apgars 9/9, the weight is pending The mother and the baby tolerated the procedure well. No complications happened other than shoulder dystocia relived with above maneuvers. I was present during whole procedure.
--- NOTE | 2023-12-09 21:08 | Anesthesia Procedure Note ---
Date of Service December 09, 2023 Anesthesia Post Epidural Note Vital Signs Vital Signs: Temp Pulse Resp BP Pulse Ox O2 Del Method 36.5 C 102 H 20 129/73 97 Room Air 12/09/23 19:10 12/09/23 20:56 12/09/23 20:00 12/09/23 20:56 12/09/23 20:36 12/09/23 19:15 Notes Mental Status: alert / awake / arousable and participated in evaluation Nausea / Vomiting: adequately controlled Pain: adequately controlled Airway Patency, RR, SpO2: stable & adequate BP & HR: stable & adequate Hydration State: stable & adequate Neuraxial Anesthesia: was administered and sensory block is resolving Anesthetic Complications: no major complications apparent Epidural: Removed without complications and With tip intact
[2023-12-09] MEDS: METHYLERGONOVINE MALEATE 0.2 MG/ML AMP IM ONE (21:39)
[2023-12-09] MEDS: BENZOCAINE 20% SPRY 85 APPLN/85 GM CAN EXT PRN (21:40)
[2023-12-09] MEDS: IBUPROFEN 600 MG TAB PO PRN (21:40)
[2023-12-09] MEDS: DOCUSATE SODIUM 100 MG CAP PO SCH (21:40)
[2023-12-09] MEDS: ONDANSETRON INJ 2 MG/ML 2 ML VIAL IV STA (22:45)
[2023-12-09] MEDS: ONDANSETRON INJ 2 MG/ML 2 ML VIAL ONE (22:45)
[2023-12-09] MEDS: MEASLES, MUMPS & RUBELLA VIRUS VACCINE (MMR) 0.5ML VIAL SQ ONE (22:48)
[2023-12-09] MEDS: DIPHTHER/TETAN/PERTUS Vaccine (Tdap, Adol/Adult) 0.5mL IM ONE (22:48)
[2023-12-10] MEDS: ACETAMINOPHEN 325 MG TAB PO PRN (00:21)
[2023-12-10 06:27] LABS: Hemoglobin 11.4 g/dl (12.0-16.0); Mean Corpuscular Hgb Conc 31.7 g/dL (32.0-36.0); Mean Platelet Volume 10.5 fL (9.4-12.4); Platelet Count 256 K/uL (130-400); RDW Coefficient of Variation 15.1 % (11.5-14.5); Red Blood Count 4.39 M/uL (4.20-5.40); White Blood Count 17.79 K/ul (4.8-10.8)
[2023-12-10] MEDS: FERROUS SULFATE 325 MG TAB PO SCH (08:20)
[2023-12-10] MEDS: PRENATAL VITAMIN 1 TAB PO SCH (08:20)
[2023-12-10] MEDS: fentaNYL citrate PF 100 MCG/2 ML VIAL EPI STA (08:59)
[2023-12-10] MEDS: BUPIVACAINE 0.25% PF 30 ML VIAL EPI STA (08:59)
[2023-12-10] MEDS: SODIUM CHLORIDE 0.9% PF INJ 10 ML VIAL EPI STA (09:00)
[2023-12-10] MEDS: LIDOCAINE 2%/EPINEPHRINE 1:200,000 20 ML PF EPI STA (09:00)
[2023-12-10] MEDS: SERTRALINE HCL 50 MG TABLET PO SCH (10:05)
--- NOTE | 2023-12-10 10:54 | Obstetrical Progress Note ---
Date of Service December 10, 2023 Subjective Ambulation: ambulating normally Voiding: no voiding problems Passing Gas:: Yes Diet Tolerance:: regular diet Lochia:: Small Feeding Type:: breast feeding Current Pain Level(1-10): 0 doing well. wants to go home later tonight. Physical Exam Constitutional WD/WN, vitals as above Gastrointestinal (Abdomen) Inspection/Auscultation: abdomen normal to inspection abdomen soft and non-tender. fundus firm Musculoskeletal Extremities: extremities normal to inspection Skin no rashes, warm and dry Neurologic patellar DTR's 2+ bilat, sensation intact Psychiatric A+Ox3, euthymic affect Results & Data Vital Signs (Past 12 Hours) Vital Signs Temp Pulse Pulse Resp BP BP 12/10/23 07:15 36.4 C L 87 20 123/87 12/10/23 04:00 36.5 C 83 18 122/81 12/10/23 00:15 36.9 C 93 H 18 117/80 12/09/23 22:56 90 135/66 Laboratory Results Laboratory Results - last 48 hr 12/09/23 12/10/23 08:21 06:00 WBC 14.46 H 17.79 H RBC 4.38 4.39 Hgb 11.6 L 11.4 L Hct 35.8 L 36.0 L MCV 81.7 82.0 MCH 26.5 26.0 MCHC 32.4 31.7 L RDW Std Deviation 44.8 45.0 RDW Coeff of Valentina 15.2 H 15.1 H Plt Count 250 256 MPV 10.5 10.5 Blood Type A Positive Antibody Screen NEGATIVE Crossmatch See Detail
[2023-12-10] MEDS ORDERED: HYDROCORTISONE 1% CRM 30 GM TUBE EXT PRN (12:44)
[2023-12-10] MEDS: bisacodyL 5 MG TABEC PO SCH (21:16)
== END 2023-12-10 21:05 | disposition home or self-care (01) | DRG 807 ==
LOC: 4S1 07:23 → 4E2 23:44